=== PATIENT | female | born 1995 | race Caucasian/White ===

== ENCOUNTER 2021-06-01 20:48 | Emergency (ER) | payer MEDICAID, SELFPAY ==
[2021-06-01 20:49] VITALS: BP 105/76; PULSE 90; RESP 16; TEMP 36.1; O2SAT 97; BMI 28.3
[2021-06-01 21:02] LABS: Bacteria 0 SEEN /hpf (None Seen); Mucous, Urine 0 SEEN /hpf (<or=2+); Red Blood Cells-Urine 0 SEEN /hpf (0-5); White Blood Cells 0 SEEN /hpf (0-5)
[2021-06-01 21:24] LABS: Color, Urine Yellow (Yellow); Glucose, Dipstick Normal (Normal); Ketone-Dipstick Negative (Negative); Leukocyte Esterase-Dipstick Negative /ul (Negative); Nitrite-Dipstick Negative (Negative); Occult Blood-Urine 10 /ul (Negative); Protein-Dipstick 15 mg/dl (Negative); Specific Gravity, Urine 1.015 (1.002-1.030); Urine Bilirubin Dipstick Negative (Negative); Urine Clarity Clear (Clear); Urine Urobilinogen Normal (Normal)
[2021-06-01 21:57] LABS: Squamous Epithelial Cells - UA 0-5 SEEN /hpf (5-10)
[2021-06-01 22:22] LABS: Absolute Lymphocyte Count 2.16 X10^3/uL (0.83-4.51); Basophil# 0.03 X10^3/uL; Basophil% 0.5 % (0-1); Eosinophil# 0.08 X10^3/uL; Eosinophils% 1.4 % (0-5); Hematocrit 37.9 % (37-47); Hemoglobin 12.1 g/dL (12.0-15.0); Lymphocyte # 2.16 X10^3/ul (0.83-4.51); Lymphocyte % 36.9 % (19-41); Mean Corp Hgb Conc 31.9 g/dL (32-36); Mean Corpuscular Hgb 26.1 pg (27.0-32.0); Mean Corpuscular Volume 81.7 fL (81-99); Mean Platelet Vol. 11.1 fl (6.2-12.0); Monocyte# 0.58 X10^3/uL; Monocyte% 9.9 % (0-10); NRBC Flagged by Analyzer 0 % (0-5); Neutrophil # 2.99 X10^3/uL (2.7-7.7); Neutrophil % 51.1 % (47-70); Platelet Count 241 K/mm3 (150-450); RBC Distribution Width CV 14.3 % (11.6-14.6); RBC Distribution Width SD 41.4 fl (35.1-43.9); Red Blood Count 4.64 M/mm3 (4.2-5.4); White Blood Count 5.9 K/mm3 (4.4-11.0)
[2021-06-01 22:41] LABS: BUN 10 mg/dL (7-18); Creatinine, Serum 0.81 mg/dL (0.55-1.02); EST Glomerular Filtration Rate 90 mL/min (>60); Glucose 87 mg/dL (74-106)
[2021-06-01 22:42] LABS: Anion Gap 4 (5-15); BUN/Creat Ratio 12.4 RATIO (10-20); Calcium,Total 9.1 mg/dL (8.5-10.1); Chloride 106 mmol/L (98-107); Est Glom Filt Rate - Afr Amer 109 mL/min (>60); Potassium 3.7 mmol/L (3.5-5.1); Sodium Level 138 mmol/L (136-145)
[2021-06-01] MEDS: 0.9% Normal Saline 1,000 ML 1000 ML IV (22:57)
[2021-06-01] MEDS: Ondansetron 4 MG/2 ML Vial IV (22:58)
[2021-06-01 23:14] LABS: Internal QC Validated? YES +Cl - CLEAR BKGD; Pregnancy, Urine Negative Negative
--- NOTE | 2021-06-01 23:28 | EDS_ITS ---
HPI History of Present Illness Chief Complaint: General Illness Informant: patient Narrative Narrative: Patient is a 26-year-old previously healthy female who presents to the emergency department for nausea/vomiting and diarrhea. Her symptoms have been present over the past 3 days. She states she is had around 5 episodes of each per day. She denies any fevers but has had some intermittent chills. She did have abdominal pain at the onset but this is since resolved. No known sick contacts. No change in diet. No recent traveling or antibiotic use. She denies any urinary symptoms. No cough. She did have a mild headache. She denies any rashes. She denies any previous abdominal surgeries. She has not been taking anything for this at home. [facility] Medical History (Updated 06/01/21 @ 23:[address] Leonel Smith DO) Hypothyroid Home Medications levothyroxine 150 mcg PO DAILY #30 tablet 07/07/15 [Rx Last Taken Unknown] dicyclomine 20 mg PO TIDAC #20 capsule 04/01/16 [Rx Last Taken Unknown] ondansetron 4 mg PO Q8H PRN PRN #10 tab 04/01/16 [Rx Last Taken Unknown] ondansetron 4 mg PO Q8H PRN 4 Days #10 tab 06/01/21 [Rx Last Taken Unknown] Allergy/AdvReac Type Severity Reaction Status Date / Time No Known Allergies Allergy Verified 06/01/21 20:51 Social History Smoking Status: Current every day smoker tobacco type: cigarettes ROS ROS ED Constitutional Constitutional ED: Denies fever(s) Eyes Eyes: Denies change in vision ENT ENT ED: Denies epistaxis or rhinorrhea Cardiovascular Cardiovascular: Denies chest pain or palpitations Respiratory/Chest Respiratory/Chest: Denies cough, dyspnea or dyspnea on exertion Gastrointestinal Gastrointestinal: Reports diarrhea, nausea and vomiting; Denies abdominal pain, constipation or melena Genitourinary Genitourinary ED: Denies dysuria, hematuria or urinary frequency Musculoskeletal Musculoskeletal: Denies back pain or neck pain Integumentary Denies rash Neurologic Neurologic: Denies dizziness or weakness EXAM Physical Exam Const Vital Signs: 06/01/21 20:49 06/01/21 22:29 Temperature 97.0 F L Temperature Source Temporal Pulse Rate 90 Respiratory Rate 16 Respiratory Effort Normal Non-Labored Respiratory Pattern Normal Blood Pressure 105/76 Blood Pressure Mean 85 Pulse Ox 97 Oxygen Delivery Method Room Air Positive well nourished and well developed General Appearance ED: well developed and NAD HEENT Reports normocephalic, head/scalp atraumatic and moist mucous membranes Eyes PERRL and EOMs intact bilaterally Neck supple Resp normal respiratory effort and clear to auscultation bilaterally Auscultation: Negative for rales, rhonchi or wheezes Cardio regular rate, regular rhythm and no murmurs GI normal to inspection, nondistended, normoactive bowel sounds and non-tender Palpation: soft; Negative for guarding or rebound tenderness present Back/Spine no CVA tenderness Extremity normal to inspection General Extremety ED: Negative for edema or tenderness General Extremity: Negative for edema Neuro no sensory deficits noted Sensorium / Orientation: alert Motor Exam: strength 5/5 throughout Psych mental status grossly normal Skin no rashes or lesions noted MDM MDM MDM Narrative Medical decision making narrative: Patient presents to the ED for nausea/vomiting and diarrhea. She feels like she is dehydrated. She has been vomiting every time she tries to eat. Will check basic lab work and treat with Zofran and IV fluids. Patient's lab work did not reveal a high white blood cell count. No significant electrolyte disturbance. Urine does not show any signs of infection. test is negative. On reevaluation patient feeling much better after fluids and Zofran. This time I believe she is stable for discharge. She likely has a component of gastritis given the vomiting and diarrhea. She is a very benign abdominal exam. Low concern for acute surgical intra-abdominal pathology. We will write a prescription for Zofran. She is to follow-up with her PCP. Return precautions are reviewed. Lab Data Labs: Laboratory Results - last 24 hr 06/01/21 06/01/21 06/01/21 20:50 20:58 22:15 WBC 5.9 RBC 4.64 Hgb 12.1 Hct 37.9 MCV 81.7 MCH 26.1 L MCHC 31.9 L RDW Std Deviation 41.4 RDW Coeff of Beth 14.3 Plt Count 241 MPV 11.1 Immature Gran % (Auto) 0.200 Neut % (Auto) 51.1 Lymph % (Auto) 36.9 [place] % (Auto) 9.9 Eos % (Auto) 1.4 Baso % (Auto) 0.5 Absolute Neuts (auto) 3.0 Absolute Lymphs (auto) 2.16 Nucleated RBC % 0 Sodium Potassium Chloride Carbon Dioxide Anion Gap BUN Creatinine Estim Creat Clear Calc Est GFR (MDRD) Af Amer Est GFR (MDRD) Non-Af BUN/Creatinine Ratio Glucose Calcium Urine Color Yellow Urine Clarity Clear Urine pH 6.0 Ur Specific [place] 1.015 Urine Protein 15 H Urine Glucose (UA) Normal Urine Ketones Negative Urine Occult Blood 10 H Urine Nitrite Negative Urine Bilirubin Negative Urine Urobilinogen Normal Ur Leukocyte Esterase Negative Urine RBC 0 SEEN Urine WBC 0 SEEN Ur Squamous Epith Cells 0-5 SEEN Urine Bacteria 0 SEEN Urine Mucus 0 SEEN Urine Test Negative 06/01/21 22:15 WBC RBC Hgb Hct MCV MCH MCHC RDW Std Deviation RDW Coeff of Beth Plt Count MPV Immature Gran % (Auto) Neut % (Auto) Lymph % (Auto) [place] % (Auto) Eos % (Auto) Baso % (Auto) Absolute Neuts (auto) Absolute Lymphs (auto) Nucleated RBC % Sodium 138 Potassium 3.7 Chloride 106 Carbon Dioxide 28.0 Anion Gap 4 L BUN 10 Creatinine 0.81 Estim Creat Clear Calc 86.30 Est GFR (MDRD) Af Amer 109 Est GFR (MDRD) Non-Af 90 BUN/Creatinine Ratio 12.4 Glucose 87 Calcium 9.1 Urine Color Urine Clarity Urine pH Ur Specific [place] Urine Protein Urine Glucose (UA) Urine Ketones Urine Occult Blood Urine Nitrite Urine Bilirubin Urine Urobilinogen Ur Leukocyte Esterase Urine RBC Urine WBC Ur Squamous Epith Cells Urine Bacteria Urine Mucus Urine Test Discharge Plan Triage Chief Complaint: General Illness ED Provider: Leonel Smith Dx/Rx/DC Orders Clinical Impression: Nausea & vomiting, Diarrhea Instructions: ED Vomiting and Diarrhea ... Prescriptions: New ondansetron 4 mg tablet,disintegrating 4 mg PO Q8H PRN (Reason: nausea and vomiting) 4 Days Qty: 10 RF: 0 No Action levothyroxine 150 MCG tablet 150 mcg PO DAILY Qty: 30 RF: 0 dicyclomine 10 MG capsule 20 mg PO TIDAC Qty: 20 RF: 0 ondansetron 4 MG tablet 4 mg PO Q8H PRN PRN (Reason: Nausea) Qty: 10 RF: 0 Primary Care Provider: Care Physician,No Primary Referrals: Care Physician,No Primary [Primary Care Provider] - 3-5 Days if not improving Disposition Disposition: Home, Self Care Discharge Date/Time: 06/01/21 23:43
== END 2021-06-01 23:43 | disposition home or self-care (01) ==
PROVIDERS: Emergency Provider Emergency Medicine
DX: R11.2 Nausea with vomiting, unspecified (principal); R19.7 Diarrhea, unspecified; F17.210 Nicotine dependence, cigarettes, uncomplicated
CPT/HCPCS: 80048; 81001; 81025; 85025; 96374; 99282; J7030; A4216; J2405

== ENCOUNTER 2021-09-07 19:29 | Emergency (ER) | payer MEDICAID, SELFPAY ==
[2021-09-07 19:30] VITALS: BP 120/74; PULSE 95; RESP 18; TEMP 36.3; O2SAT 100; BMI 29.1
--- NOTE | 2021-09-07 21:31 | ED.RN ---
pt left without discharge papers.
--- NOTE | 2021-09-07 21:57 | EX.ED.DYSGE1 ---
HPI History of Present Illness Chief Complaint: Wound Narrative Narrative: Patient presented with multiple scabbed over wounds on her bilateral lower extremities. She states these are actually improving. Patient states that she was seen by urgent care today and started on cefadroxil and given mupirocin cream. She states she was told if she gets worse that she could come to the ER. She has not taken her antibiotics and has not used the topical ointment. She states that she has been a little lightheaded lately. She has not had any known fever. She denies cough or shortness of breath. She has no nausea or vomiting. She states she might have had the chills. She states she has taken no medications today. She denies history of MRSA. She states that after going home she was a little scared because the urgent care told her she needed blood cultures to rule out MRSA. She also states she was using [employer] to look up her symptoms and this frightened her to. [facility] Medical History Hypothyroid Home Medications levothyroxine 150 mcg PO DAILY #30 tablet 07/07/15 [Rx Last Taken Unknown] dicyclomine 20 mg PO TIDAC #20 capsule 04/01/16 [Rx Last Taken Unknown] ondansetron 4 mg PO Q8H PRN PRN #10 tab 04/01/16 [Rx Last Taken Unknown] ondansetron 4 mg PO Q8H PRN 4 Days #10 tab 06/01/21 [Rx Last Taken Unknown] Allergy/AdvReac Type Severity Reaction Status Date / Time No Known Allergies Allergy Verified 06/01/21 20:51 Social History Smoking Status: Current every day smoker tobacco type: cigarettes EXAM Physical Exam Const Vital Signs: 09/07/21 19:30 Temperature 97.3 F L Temperature Source Temporal Pulse Rate 95 Respiratory Rate 18 Blood Pressure 120/74 Blood Pressure Mean 89 Pulse Ox 100 Oxygen Delivery Method Room Air Positive well nourished General Appearance ED: NAD HEENT Reports moist mucous membranes Negative for trauma Eyes PERRL and EOMs intact bilaterally Chest Wall inspection of chest normal and palpation of chest normal Resp normal respiratory effort and clear to auscultation bilaterally Cardio regular rate and regular rhythm Extremity Extremity Narrative: Multiple scabbed over areas of approximately 1 cm over the bilateral lower extremities in different stages of healing. Some of these have a little erythema around them. There is nothing fluctuant. Neuro oriented x3 Sensorium / Orientation: alert Skin Skin Narrative: As described above MDM MDM MDM Narrative Medical decision making narrative: Patient presenting with concern for sepsis. After discussion I counseled her that all of her vital signs were normal. She had not taken anything that would mask a fever and she is afebrile. Her physical exam is remarkable for the scabbed over lesions on the lower extremities. Some of these have erythema around them. She has an antibiotic that she can use as well as topical ointment. She states that she has no history of MRSA or abscess in the past. She does not use IV drugs. Counseled her that based on her symptoms and her vital signs that she is not septic. I encouraged her to use her antibiotic at home. Counseled her that if she has 2 days of antibiotics and her symptoms are not improving she could return to the ER for reevaluation. I did offer wound care to her for follow-up but she declined. Impression: 1. Wound check Discharge Plan Triage Chief Complaint: Wound ED Provider: Zach Katz Dx/Rx/DC Orders Prescriptions: No Action levothyroxine 150 MCG tablet 150 mcg PO DAILY Qty: 30 RF: 0 dicyclomine 10 MG capsule 20 mg PO TIDAC Qty: 20 RF: 0 ondansetron 4 MG tablet 4 mg PO Q8H PRN PRN (Reason: Nausea) Qty: 10 RF: 0 ondansetron 4 mg tablet,disintegrating 4 mg PO Q8H PRN (Reason: nausea and vomiting) 4 Days Qty: 10 RF: 0 Primary Care Provider: Care Physician,No Primary Referrals: Care Physician,No Primary [Primary Care Provider] - Disposition Disposition: Elopement Discharge Date/Time: 09/07/21 21:33
== END 2021-09-07 21:33 | disposition left against medical advice (07) ==
PROVIDERS: Emergency Provider Student in an Organized Health Care Education/Training Program
DX: S89.91XA Unspecified injury of right lower leg, initial encounter (principal); S89.92XA Unspecified injury of left lower leg, initial encounter; X58.XXXA Exposure to other specified factors, initial encounter
CPT/HCPCS: 99281

== ENCOUNTER 2022-12-24 19:12 | Emergency (ER) | payer MEDICAID, SELFPAY ==
[2022-12-24 19:14] VITALS: BP 126/100; PULSE 98; RESP 18; TEMP 36.6; O2SAT 99; BMI 30.3
[2022-12-24 19:48] LABS: Bacteria 0 SEEN /hpf (None Seen); Mucous, Urine 0 SEEN /hpf (<or=2+); Red Blood Cells-Urine 0 SEEN /hpf (0-5); Squamous Epithelial Cells - UA 0 SEEN /hpf (5-10); White Blood Cells 0 SEEN /hpf (0-5)
[2022-12-24 19:51] LABS: Color, Urine Yellow (Yellow); Glucose, Dipstick Normal (Normal); Ketone-Dipstick 5 mg/dl (Negative); Leukocyte Esterase-Dipstick Negative /ul (Negative); Nitrite-Dipstick Negative (Negative); Occult Blood-Urine Negative /ul (Negative); Protein-Dipstick Negative (Negative); Urine Bilirubin Dipstick Negative (Negative); Urine Clarity Clear (Clear); Urine Urobilinogen Normal (Normal)
--- NOTE | 2022-12-24 22:23 | CT_ITS ---
INDICATION: lower abd pain EXAMINATION: CT ABDOMEN AND PELVIS WITH CONTRAST - CT Abdomen And Pelvis W/ Contrast Injection TECHNIQUE: Helically acquired images were obtained of the abdomen and pelvis following IV contrast. A radiation dose optimization technique was used for this scan. IV Contrast dosage and agent: Oral contrast: None. COMPARISON: None. FINDINGS: LOWER CHEST: Lung bases are clear. LIVER: Unremarkable. GALLBLADDER/BILE DUCTS: Unremarkable. PANCREAS: Unremarkable. SPLEEN: A few small scattered calcifications. ADRENAL GLANDS: Unremarkable. KIDNEYS / URETERS: Unremarkable. BOWEL / MESENTERY: Unremarkable. No bowel obstruction. APPENDIX: Identified and normal. No evidence of acute appendicitis. PERITONEUM: No free air. Small amount of free fluid in the pelvis cul-de-sac greater than water attenuation. VESSELS: Abdominal aorta is normal caliber. RETROPERITONEUM: Unremarkable. REPRODUCTIVE ORGANS: Intrauterine device in place within the uterus. Small 2.5 x 1.8 cm cystic structure with irregular margins likely partially collapsed cyst or follicle right ovary. BLADDER: Unremarkable. ABDOMINAL WALL: Unremarkable. BONES: No acute abnormality. OTHER: None. CT/Abdomen/Pelvis W IV Cont ONLY IMPRESSION: Small amount of complex free fluid in the pelvis most likely hemoperitoneum related to ruptured ovarian cyst. Small 2.5 cm partially collapsed right ovarian cyst or follicle. No evidence of acute appendicitis. IUD in the uterus. Electronically Signed: Eleanor Klein MD at 23:32 EST ,
--- NOTE | 2022-12-24 22:24 | EDS_ITS ---
HPI HPI - GI History of Present Illness Chief Complaint: Complaint Detail of Chief Complaint: Lower abdominal pain Informant: patient Abdominal Pain/Flank Pain Onset: Today and Yesterday Context: Gradual Onset Quality: Aching Location: Diffuse and RLQ Current Severity: Mild Maximum Severity: Mild Worsened by: Nothing Relieved by: Nothing Nausea/Vomiting/Emesis GI Symptom: Positive for Nausea; Negative for Vomiting Onset: Today Severity: Mild Diarrhea/Melena/Hematochezia GI Symptom: Negative for Diarrhea, Melena or Hematochezia Associated Symptoms Associated Symptoms: Negative for Dysuria, Frequency or Hematuria Narrative Narrative: 27-year-old female history of anxiety and hypothyroidism. No prior abdominal surgeries. Yesterday started having bilateral lower back pain. Today had pelvic and right lower quadrant pain with intermittent diffuse abdominal pain. 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 They dipped her urine and thought she might have a UTI and she took 1 Keflex yesterday when she had. She is feeling worse today. Denies any vomiting or diarrhea. No specific dysuria. No hematuria. No vaginal bleeding or discharge. Last menstrual period was around December 11. Prior similar symptoms: No Recent Illness/Hospitalization: No PFSH PFSH Medical History Hypothyroid Home Medications levothyroxine 150 mcg tablet 150 mcg PO DAILY ##30 07/07/15 [Rx Last Taken Unknown] dicyclomine 10 mg capsule 20 mg PO TIDAC ##20 04/01/16 [Rx Last Taken Unknown] ondansetron 4 mg disintegrating tablet 4 mg PO Q8H PRN PRN Nausea #10 tabs 04/01/16 [Rx Last Taken Unknown] ondansetron 4 mg disintegrating tablet 4 mg PO Q8H PRN nausea and vomiting 4 days #10 tabs 06/01/21 [Rx Last Taken Unknown] Allergy/AdvReac Type Severity Reaction Status Date / Time No Known Allergies Allergy Verified 12/24/22 19:13 Social History Smoking Status: Current every day smoker tobacco type: cigarettes ROS ROS ED ROS Narrative Back pain. Abdominal pain. Review of Systems ROS Unobtainable: Denies due to encephalopathy Constitutional Constitutional ED: Denies chills or fever(s) ENT ENT ED: Denies ear pain Cardiovascular Cardiovascular: Denies chest pain Respiratory/Chest Respiratory/Chest: Denies cough or dyspnea Gastrointestinal Gastrointestinal: Reports abdominal pain and nausea; Denies constipation, diarrhea, melena or vomiting Genitourinary Genitourinary ED: Denies dysuria or hematuria Musculoskeletal Musculoskeletal: Denies arthralgias Integumentary Denies abscess Neurologic Neurologic: Denies headache(s) Psychiatric Psychiatric: Denies anxiety Endocrine Endocrinology: Denies polydipsia Hematologic/Lymphatic Hematologic/Lymphatic: Denies easy bleeding Allergic/Immunologic Allergic/Immunologic ED: Denies mouth swelling or tongue swelling EXAM Physical Exam Narrative Exam Narrative: 27-year-old female no acute distress. Vital signs stable afebrile. H EENT exam unremarkable. Moist mucous membranes. Lungs clear. Heart regular rhythm. Abdomen soft nondistended normal bowel sounds no peritoneal signs. She has mild suprapubic and right lower quadrant tenderness. There is no hernia or mass. No distention. No right upper quadrant pain. No Garcia sign or McBurney's point exquisite tenderness. It is pretty much a benign abdominal exam. She is moving all 4 extremities. Back nontender. No CVA tenderness. Neurologic exam is normal. Const Vital Signs: 12/24/22 19:14 12/25/22 01:00 Temperature 97.8 F Temperature Source Temporal Pulse Rate 98 91 Respiratory Rate 18 18 Blood Pressure 126/100 H 119/72 Blood Pressure Mean 108 87 Pulse Ox 99 98 Oxygen Delivery Method Room Air Room Air Positive well nourished, well developed and obese; Negative for cachectic, contractures or unkempt General Appearance ED: well developed and NAD; Negative for unkempt, cachectic, contractures or pallor Nutritional Appearance: obese; Negative for cachectic HEENT Reports moist mucous membranes normocephalic and atraumatic; Negative for trauma or tenderness Eyes PERRL and EOMs intact bilaterally General Eye ED: Negative for pale conjunctiva or scleral icterus Neck no lymphadenopathy, supple and no JVD General: Negative for tenderness Carotids: Negative for other Resp normal respiratory effort and clear to auscultation bilaterally Effort and Inspection: Negative for respiratory distress Auscultation: Negative for rales, rhonchi or wheezes Cardio regular rate, regular rhythm, S1 normal heart sound, S2 normal heart sound and no murmurs Rate: Negative for bradycardia Rhythm: Negative for abnormal rhythm GI non-distended and no masses; Negative for non-tender Inspection: Negative for abdominal distention Auscultation: normoactive bowel sounds Palpation: soft and tender; Negative for guarding, rigid, hepatomegaly, splenomegaly, hernia, mass, pulsatile mass or rebound tenderness present Back/Spine no CVA tenderness General Back: Negative for CVA tenderness Cervical Spine: Negative for cervical spine tenderness Thoracic Spine / Upper Back: Negative for thoracic spinal tenderness Lumbar Spine / Lower Back: Negative for lumbar spinal tenderness Coccyx: Negative for other Extremity full ROM General Extremety ED: Negative for edema or tenderness General Extremity: Negative for edema Neuro CN's II-XII intact bilaterally, moves all extremities and no sensory deficits noted Sensorium / Orientation: alert, oriented to person, oriented to place and oriented to time; Negative for orientation impaired, confused, lethargic or stuporous Motor Exam: strength 5/5 throughout; Negative for general weakness Psych mental status grossly normal and thought process normal Appearance: Negative for unkempt Attitude: No agitated Mood & Affect: Negative for depressed, anxious or tearful Skin no wounds General Skin Exam: Negative for jaundice or pallor Lesions: no lesions Rashes: no rashes Trauma: Negative for abrasion Nails: Negative for discolored MDM MDM MDM Narrative Medical decision making narrative: 27-year-old with atypical back and abdominal pain. Not impressive exam. Urine is completely clean. She will get a CT of her abdomen and pelvis. Screening labs and a test. Clinically I do not think this is a UTI. I think it is unlikely but in the differential is appendicitis. Could be an ovarian cyst. She does not need anything for pain or nausea at this time. Repeat in exam room at 1:05 AM patient doing well. Abdomen is completely benign and nontender. She and I went over all of her test results including the CAT scan. She is comfortable being discharged home. Motrin Tylenol for pain. Follow-up if not improving. Return if worse. Lab Data Attestation: I reviewed the patient's lab results. Lab results narrative: CBC shows normal white count 10.3. H&H 12.4 and 39.7. Platelets 329. Electrolytes show potassium of 3.3 gap of 7. Normal BUN and creatinine. Normal liver enzymes. Normal urine. Serum is negative. CAT scan shows a ruptured ovarian cyst. With fluid in the pelvis. Read by the radiologist. appendix was read as normal. I did review the CAT scan. Labs: Laboratory Results - last 24 hr 12/24/22 12/24/22 12/24/22 19:45 22:30 22:30 WBC 10.3 RBC 4.79 Hgb 12.4 Hct 39.7 MCV 82.9 MCH 25.9 L MCHC 31.2 L RDW Std Deviation 50.0 H RDW Coeff of Beth 16.7 H Plt Count 329 MPV 11.0 Immature Gran % (Auto) 0.300 Neut % (Auto) 55.6 Lymph % (Auto) 34.7 [place] % (Auto) 6.6 Eos % (Auto) 2.2 Baso % (Auto) 0.6 Absolute Neuts (auto) 5.7 Absolute Lymphs (auto) 3.56 Nucleated RBC % 0 Sodium 139 Potassium 3.3 L Chloride 105 Carbon Dioxide 27.0 Anion Gap 7 BUN 9 Creatinine 0.72 Estim Creat Clear Calc 92.00 Est GFR (MDRD) Af Amer 123 Est GFR (MDRD) Non-Af 101 BUN/Creatinine Ratio 12.4 Glucose 91 Calcium 9.1 Total Bilirubin 0.50 AST 23 ALT 25 Alkaline Phosphatase 62 Total Protein 8.0 Albumin 4.3 Globulin 3.7 Albumin/Globulin Ratio 1.2 Serum , Qual Urine Color Yellow Urine Clarity Clear Urine pH 7.0 Ur Specific [place] 1.010 Urine Protein Negative Urine Glucose (UA) Normal Urine Ketones 5 H Urine Occult Blood Negative Urine Nitrite Negative Urine Bilirubin Negative Urine Urobilinogen Normal Ur Leukocyte Esterase Negative Urine RBC 0 SEEN Urine WBC 0 SEEN Ur Squamous Epith Cells 0 SEEN Urine Bacteria 0 SEEN Urine Mucus 0 SEEN 12/24/22 22:30 WBC RBC Hgb Hct MCV MCH MCHC RDW Std Deviation RDW Coeff of Beth Plt Count MPV Immature Gran % (Auto) Neut % (Auto) Lymph % (Auto) [place] % (Auto) Eos % (Auto) Baso % (Auto) Absolute Neuts (auto) Absolute Lymphs (auto) Nucleated RBC % Sodium Potassium Chloride Carbon Dioxide Anion Gap BUN Creatinine Estim Creat Clear Calc Est GFR (MDRD) Af Amer Est GFR (MDRD) Non-Af BUN/Creatinine Ratio Glucose Calcium Total Bilirubin AST ALT Alkaline Phosphatase Total Protein Albumin Globulin Albumin/Globulin Ratio Serum , Qual NEGATIVE Urine Color Urine Clarity Urine pH Ur Specific [place] Urine Protein Urine Glucose (UA) Urine Ketones Urine Occult Blood Urine Nitrite Urine Bilirubin Urine Urobilinogen Ur Leukocyte Esterase Urine RBC Urine WBC Ur Squamous Epith Cells Urine Bacteria Urine Mucus Radiography Diagnostic Testing: Clinical Impression(s) from Imaging Studies Abdomen/Pelvis CT 12/24/22 22:23 IMPRESSION: Small amount of complex free fluid in the pelvis most likely hemoperitoneum related to ruptured ovarian cyst. Small 2.5 cm partially collapsed right ovarian cyst or follicle. No evidence of acute appendicitis. IUD in the uterus. Electronically Signed: Eleanor Klein MD at 23:32 EST , Discharge Plan Triage Chief Complaint: Complaint Other Complaint: Back Fever ED Provider: Chucho Etienne Dx/Rx/DC Orders Clinical Impression: Abdominal pain, Ovarian cyst rupture Instructions: Ovarian Cysts Prescriptions: No Action levothyroxine 150 MCG tablet 150 mcg PO DAILY Qty: 30 0RF dicyclomine 10 MG capsule 20 mg PO TIDAC Qty: 20 0RF Rx Instructions: causes drowsiness ondansetron 4 MG tablet 4 mg PO Q8H PRN PRN (Reason: Nausea) Qty: 10 0RF ondansetron 4 mg tablet,disintegrating 4 mg PO Q8H PRN (Reason: nausea and vomiting) 4 Days Qty: 10 0RF Primary Care Provider: Tonia Waddell Referrals: Tonia Waddell, [facility] [Primary Care Provider] - As Needed Activity Restrictions/Additional Instructions: You have a ruptured ovarian cyst. That is what is causing her pain. Tylenol and Motrin for pain. This should progressively improve. Follow-up with your primary care provider if not improving. Your labs were normal. Your urine was negative. Disposition Disposition: Home, Self Care
[2022-12-24 22:55] LABS: Absolute Lymphocyte Count 3.56 X10^3/uL (0.83-4.51); Absolute Neutrophil Count 5.7 X10^3/uL (2.0-7.7); Basophil# 0.06 X10^3/uL; Basophil% 0.6 % (0-1); Eosinophil# 0.23 X10^3/uL; Eosinophils% 2.2 % (0-5); Hematocrit 39.7 % (37-47); Hemoglobin 12.4 g/dL (12.0-15.0); Lymphocyte # 3.56 X10^3/ul (0.83-4.51); Lymphocyte % 34.7 % (19-41); Mean Corp Hgb Conc 31.2 g/dL (32-36); Mean Corpuscular Hgb 25.9 pg (27.0-32.0); Mean Corpuscular Volume 82.9 fL (81-99); Monocyte# 0.68 X10^3/uL; Monocyte% 6.6 % (0-10); NRBC Flagged by Analyzer 0 % (0-5); Neutrophil # 5.69 X10^3/uL (2.7-7.7); Neutrophil % 55.6 % (47-70); Platelet Count 329 K/mm3 (150-450); RBC Distribution Width CV 16.7 % (11.6-14.6); Red Blood Count 4.79 M/mm3 (4.2-5.4); White Blood Count 10.3 K/mm3 (4.4-11.0)
[2022-12-24 23:06] LABS: Internal QC Validated? YES +Cl - CLEAR BKGD; Pregnancy, Serum, hCG Quali. NEGATIVE Negative
[2022-12-24 23:12] LABS: ALB/GLOB Ratio 1.2 RATIO (0.9-2.4); AST(SGOT) 23 U/L (15-37); Alanine Aminotransfer ALT/SGPT 25 U/L (13-56); Albumin, Serum 4.3 g/dL (3.2-5.0); Alkaline Phosphatase 62 U/L (45-117); Anion Gap 7 (5-15); BUN 9 mg/dL (7-18); BUN/Creat Ratio 12.4 RATIO (10-20); Calcium,Total 9.1 mg/dL (8.5-10.1); Chloride 105 mmol/L (98-107); Creatinine, Serum 0.72 mg/dL (0.55-1.02); EST Glomerular Filtration Rate 101 mL/min (>60); Est Glom Filt Rate - Afr Amer 123 mL/min (>60); Globulin 3.7 g/dL (2.2-4.2); Glucose 91 mg/dL (74-106); Potassium 3.3 mmol/L (3.5-5.1); Sodium Level 139 mmol/L (136-145)
[2022-12-25] MEDS: Acetaminophen 500 MG Tablet 1000 MG PO (00:59)
[2022-12-25 01:00] VITALS: BP 119/72; PULSE 91; RESP 18; O2SAT 98
[2022-12-25 01:13] VITALS: BP 108/69; PULSE 73; RESP 15; O2SAT 99
== END 2022-12-25 01:13 | disposition home or self-care (01) ==
PROVIDERS: Emergency Provider Emergency Medicine; PCP Nurse Practitioner Family; Visit Provider Emergency Medicine
DX: N83.201 Unspecified ovarian cyst, right side (principal); F17.210 Nicotine dependence, cigarettes, uncomplicated; E03.9 Hypothyroidism, unspecified; E66.9 Obesity, unspecified; Z68.30 Body mass index [BMI] 30.0-30.9, adult; Z79.899 Other long term (current) drug therapy
CPT/HCPCS: 74177; 80053; 81001; 84703; 85025; 99282; Q9967; A4216

== ENCOUNTER 2023-03-28 14:45 | Emergency (ER) | payer MEDICAID, SELFPAY ==
[2023-03-28 14:46] VITALS: BP 125/86; PULSE 82; RESP 16; TEMP 36.6; O2SAT 98; BMI 31.4
--- NOTE | 2023-03-28 16:20 | EX.ED.DYSGE1 ---
HPI <LADY Alvarado - Last Filed: 03/28/23 18:04> History of Present Illness Chief Complaint: Weakness Narrative Narrative: Patient is a 28-year-old female with history of hypothyroidism, fibromyalgia, anxiety, depression, ADHD presents the emergency department with full body weakness. Patient states that on Friday which was 4 days ago, the patient was diagnosed with strep throat. She was placed on amoxicillin. Patient states that her throat feels better however she feels more weak. She states that she was playing with her son today, when she got immediately tired quickly. She denies any fever or chills, denies any shortness of breath. Denies any chest pain. Patient is here for evaluation. Negative for any rash. PFSH <LADY Alvarado - Last Filed: 03/28/23 18:04> [facility] Medical History Hypothyroid Home Medications alprazolam 0.5 mg tablet mg 03/28/23 [History Last Taken Unknown] amoxicillin 500 mg capsule mg 03/28/23 [History Last Taken Unknown] levothyroxine 150 mcg tablet 200 mcg PO DAILY 03/28/23 [History Last Taken Unknown] lisdexamfetamine 40 mg capsule (Vyvanse) mg 03/28/23 [History Last Taken Unknown] paroxetine HCl 10 mg tablet mg PO 03/28/23 [History Last Taken Unknown] Allergy/AdvReac Type Severity Reaction Status Date / Time No Known Allergies Allergy Verified 03/28/23 14:46 Social History Smoking Status: Current every day smoker tobacco type: cigarettes ROS <LADY Alvarado - Last Filed: 03/28/23 18:04> ROS ED ROS Narrative Constitutional: Negative for fever, chills, weight loss. Positive for generalized weakness Eyes: Negative for vision loss, vision change, double vision ENT: Negative for any sore throat, ear pain, congestion Cardiovascular: Negative for any chest pain, tightness, palpitations Respiratory: Negative for any cough, sputum production, hemoptysis, dyspnea, dyspnea on exertion, orthopnea Gastrointestinal: Negative for any abdominal pain, nausea, vomiting, diarrhea, constipation, blood in stool, blood in vomit : Negative for any urinary frequency, dysuria, retention, blood in urine Muscle skeletal: Negative for any muscle joint pain, stiffness, arthralgias, neck pain, back pain. Positive for myalgias Neurological: Negative for any headache, syncope, numbness or tingling, dizziness Skin: Negative for any rashes, lumps, itching, abrasions, lacerations Psychiatric: Negative for any depression, anxiety, stress, suicidal ideation, homicidal ideation Hematologic: Negative for any easy bruising, excessive bruising, easy bleeding Allergies: Negative for any eczema, hives, rash EXAM <LADY Alvarado - Last Filed: 03/28/23 18:04> Physical Exam Narrative Exam Narrative: Vital signs reviewed. HEET: Head normocephalic atraumatic, TMs clear bilaterally. Posterior pharynx is clear, moist mucous membranes. Nares clear bilaterally. Neck: Supple with no lymphadenopathy or tenderness. No signs of meningismus, negative jolt sign. Cardiac: Regular rate and rhythm no murmurs gallops or rubs, equal peripheral pulses bilaterally. Respiratory: Lungs clear to auscultation bilaterally. No chest tenderness. Abdomen: Soft, nontender, nondistended. No abdominal bruit or pulsatile masses. No hepatosplenomegaly Extremities: No peripheral edema, no signs of gross trauma or deformity. Active full range of motion of all extremities. Neuro: Cranial nerves II through XII intact, no focal neurological deficits. Skin: Clean dry and intact with no rash, purpura, petechiae, vesicles or pustules. Backs/flank: No CVA tenderness, no midline spinal tenderness, no deformity. Psych: Normal mood and affect. No SI, HI or acute psychosis. Const Vital Signs: 03/28/23 14:46 03/28/23 15:40 Temperature 97.9 F Temperature Source Temporal Pulse Rate 82 Respiratory Rate 16 Respiratory Effort Normal Non-Labored Blood Pressure 125/86 H Blood Pressure Mean 99 Pulse Ox 98 Oxygen Delivery Method Room Air <Dr. Frank Crouch MD - Last Filed: 03/28/23 17:59> Physical Exam Const Vital Signs: 03/28/23 14:46 03/28/23 15:40 Temperature 97.9 F Temperature Source Temporal Pulse Rate 82 Respiratory Rate 16 Respiratory Effort Normal Non-Labored Blood Pressure 125/86 H Blood Pressure Mean 99 Pulse Ox 98 Oxygen Delivery Method Room Air [facility] <Pedro BautistaLADY - Last Filed: 03/28/23 18:04> [facility] Lab Data Labs: Laboratory Results - last 24 hr 03/28/23 03/28/23 03/28/23 16:24 16:29 16:29 WBC 9.9 RBC 4.76 Hgb 12.2 Hct 39.7 MCV 83.4 MCH 25.6 L MCHC 30.7 L RDW Std Deviation 45.7 H RDW Coeff of Beth 14.9 H Plt Count 338 MPV 10.6 Immature Gran % (Auto) 0.400 Neut % (Auto) 60.2 Lymph % (Auto) 31.7 [place] % (Auto) 5.2 Eos % (Auto) 1.6 Baso % (Auto) 0.9 Absolute Neuts (auto) 6.0 Absolute Lymphs (auto) 3.14 Nucleated RBC % 0 Sodium 138 Potassium 3.8 Chloride 105 Carbon Dioxide 27.0 Anion Gap 6 BUN 19 H Creatinine 0.65 Estim Creat Clear Calc 101.00 Est GFR (MDRD) Af Amer 138 Est GFR (MDRD) Non-Af 114 BUN/Creatinine Ratio 29.2 H Glucose 96 Calcium 8.6 Total Bilirubin 0.20 AST 19 ALT 31 Alkaline Phosphatase 72 Total Protein 7.5 Albumin 3.5 Globulin 4.0 Albumin/Globulin Ratio 0.9 TSH 11.30 H Urine Color Yellow Urine Clarity Clear Urine pH 6.0 Ur Specific [place] 1.020 Urine Protein 15 H Urine Glucose (UA) Normal Urine Ketones 5 H Urine Occult Blood Negative Urine Nitrite Negative Urine Bilirubin Negative Urine Urobilinogen Normal Ur Leukocyte Esterase 25 H Urine RBC 0 SEEN Urine WBC 0 SEEN Ur Squamous Epith Cells 0-5 SEEN Urine Bacteria 0 SEEN Urine Mucus 0 SEEN Urine Test Negative Monoscreen 03/28/23 16:29 WBC RBC Hgb Hct MCV MCH MCHC RDW Std Deviation RDW Coeff of Beth Plt Count MPV Immature Gran % (Auto) Neut % (Auto) Lymph % (Auto) [place] % (Auto) Eos % (Auto) Baso % (Auto) Absolute Neuts (auto) Absolute Lymphs (auto) Nucleated RBC % Sodium Potassium Chloride Carbon Dioxide Anion Gap BUN Creatinine Estim Creat Clear Calc Est GFR (MDRD) Af Amer Est GFR (MDRD) Non-Af BUN/Creatinine Ratio Glucose Calcium Total Bilirubin AST ALT Alkaline Phosphatase Total Protein Albumin Globulin Albumin/Globulin Ratio TSH Urine Color Urine Clarity Urine pH Ur Specific [place] Urine Protein Urine Glucose (UA) Urine Ketones Urine Occult Blood Urine Nitrite Urine Bilirubin Urine Urobilinogen Ur Leukocyte Esterase Urine RBC Urine WBC Ur Squamous Epith Cells Urine Bacteria Urine Mucus Urine Test Monoscreen Negative Treatment and Re-Evaluation :: Patient appears generally well, patient appears nontoxic, vital signs are stable. Patient presents to the emergency department with ongoing weakness, feeling of fatigue over the last week. Patient did get diagnosed with strep throat 3 days ago, she has been taking her amoxicillin however she states she is not feeling better. Patient did receive some basic laboratory values, I was concerned about a TSH secondary to her not taking her medication as prescribed, as well as mono.Patient did receive laboratory values, patient's urinalysis was negative for any infection, patient is not . 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 She also admits to not taking the medication as prescribed. She will continue to take it as prescribed. Her mono was negative. We the patient is suffering from the strep infection, I think that it will take time, to feel better. There is no evidence of any acute new infection. She is instructed to take the amoxicillin as prescribed. She will maintain hydration. Patient is happy with the plan of care, she did feel better after IV hydration. At this time, is no evidence of any mono, thyroid storm, excessive hypothyroidism, urinary tract infection. Patient and her significant other were given discharge instructions, all questions answered <Dr. Frank Crouch MD - Last Filed: 03/28/23 17:59> [facility] Lab Data Attestation: I reviewed the patient's lab results. Labs: Laboratory Results - last 24 hr 03/28/23 03/28/23 03/28/23 16:24 16:29 16:29 WBC 9.9 RBC 4.76 Hgb 12.2 Hct 39.7 MCV 83.4 MCH 25.6 L MCHC 30.7 L RDW Std Deviation 45.7 H RDW Coeff of Beth 14.9 H Plt Count 338 MPV 10.6 Immature Gran % (Auto) 0.400 Neut % (Auto) 60.2 Lymph % (Auto) 31.7 [place] % (Auto) 5.2 Eos % (Auto) 1.6 Baso % (Auto) 0.9 Absolute Neuts (auto) 6.0 Absolute Lymphs (auto) 3.14 Nucleated RBC % 0 Sodium 138 Potassium 3.8 Chloride 105 Carbon Dioxide 27.0 Anion Gap 6 BUN 19 H Creatinine 0.65 Estim Creat Clear Calc 101.00 Est GFR (MDRD) Af Amer 138 Est GFR (MDRD) Non-Af 114 BUN/Creatinine Ratio 29.2 H Glucose 96 Calcium 8.6 Total Bilirubin 0.20 AST 19 ALT 31 Alkaline Phosphatase 72 Total Protein 7.5 Albumin 3.5 Globulin 4.0 Albumin/Globulin Ratio 0.9 TSH 11.30 H Urine Color Yellow Urine Clarity Clear Urine pH 6.0 Ur Specific [place] 1.020 Urine Protein 15 H Urine Glucose (UA) Normal Urine Ketones 5 H Urine Occult Blood Negative Urine Nitrite Negative Urine Bilirubin Negative Urine Urobilinogen Normal Ur Leukocyte Esterase 25 H Urine RBC 0 SEEN Urine WBC 0 SEEN Ur Squamous Epith Cells 0-5 SEEN Urine Bacteria 0 SEEN Urine Mucus 0 SEEN Urine Test Negative Monoscreen 03/28/23 16:29 WBC RBC Hgb Hct MCV MCH MCHC RDW Std Deviation RDW Coeff of Beth Plt Count MPV Immature Gran % (Auto) Neut % (Auto) Lymph % (Auto) [place] % (Auto) Eos % (Auto) Baso % (Auto) Absolute Neuts (auto) Absolute Lymphs (auto) Nucleated RBC % Sodium Potassium Chloride Carbon Dioxide Anion Gap BUN Creatinine Estim Creat Clear Calc Est GFR (MDRD) Af Amer Est GFR (MDRD) Non-Af BUN/Creatinine Ratio Glucose Calcium Total Bilirubin AST ALT Alkaline Phosphatase Total Protein Albumin Globulin Albumin/Globulin Ratio TSH Urine Color Urine Clarity Urine pH Ur Specific [place] Urine Protein Urine Glucose (UA) Urine Ketones Urine Occult Blood Urine Nitrite Urine Bilirubin Urine Urobilinogen Ur Leukocyte Esterase Urine RBC Urine WBC Ur Squamous Epith Cells Urine Bacteria Urine Mucus Urine Test Monoscreen Negative Treatment and Re-Evaluation Comments:: Seen and evaluated independently and in conjunction with nurse practitioner. Agree with notes above unless documented otherwise. Patient recently had sore throat and was diagnosed by swab with strep throat, her other 2 family members also had the same symptoms at the same time, all swab positive for strep and were treated. She has been on amoxicillin for the past 3-4 days, her sore throat is completely better and asymptomatic. She has been more fatigued and achy all over, she denies persistent fevers. She has developed no rash. On exam, she does not have a rash except for some mild angular cheilitis in the right mouth. She is well-appearing in no distress, posterior pharynx is normal-appearing, she has no posterior or anterior lymphadenopathy of the neck. I agree with the work-up performed including a Monospot. That is negative and there is no atypical lymphocytes to suggest mononucleosis. She takes her levothyroxine inconsistently, and her TSH is elevated but not as high as it has been in the past. Based on the available information in the labs I suspect taking her levothyroxine more consistently will help her feel better. Follow-up as an outpatient encouraged. Discharge Plan Triage Chief Complaint: Weakness Other Complaint: Sore Throat ED Midlevel Provider: Pedro Bautista ED Provider: Frank Crouch Dx/Rx/DC Orders Clinical Impression: Fatigue, Hypothyroidism, History of streptococcal sore throat Instructions: ED Hypothyroidism Prescriptions: No Action amoxicillin 500 mg capsule paroxetine HCl 10 mg tablet PO alprazolam 0.5 mg tablet Vyvanse 40 mg capsule levothyroxine 150 MCG tablet 200 mcg PO DAILY Primary Care Provider: Tonia Waddell Referrals: Tonia Waddell, [facility] [Primary Care Provider] - Activity Restrictions/Additional Instructions: Maintain hydration. Take your thyroid medication as prescribed. Continue taking the antibiotic Disposition Disposition: Home, Self Care
[2023-03-28] MEDS: Ondansetron 4 MG/2 ML Vial IV (16:30)
[2023-03-28] MEDS: 0.9% Normal Saline 1,000 ML 1000 ML IV (16:30)
[2023-03-28 16:35] LABS: Bacteria 0 SEEN /hpf (None Seen); Mucous, Urine 0 SEEN /hpf (<or=2+); Red Blood Cells-Urine 0 SEEN /hpf (0-5); White Blood Cells 0 SEEN /hpf (0-5)
[2023-03-28 16:44] LABS: Color, Urine Yellow (Yellow); Glucose, Dipstick Normal (Normal); Ketone-Dipstick 5 mg/dl (Negative); Leukocyte Esterase-Dipstick 25 /ul (Negative); Nitrite-Dipstick Negative (Negative); Occult Blood-Urine Negative /ul (Negative); Protein-Dipstick 15 mg/dl (Negative); Urine Bilirubin Dipstick Negative (Negative); Urine Clarity Clear (Clear); Urine Urobilinogen Normal (Normal)
[2023-03-28 16:50] LABS: Absolute Lymphocyte Count 3.14 X10^3/uL (0.83-4.51); Basophil# 0.09 X10^3/uL; Basophil% 0.9 % (0-1); Eosinophil# 0.16 X10^3/uL; Eosinophils% 1.6 % (0-5); Hematocrit 39.7 % (37-47); Hemoglobin 12.2 g/dL (12.0-15.0); Lymphocyte # 3.14 X10^3/ul (0.83-4.51); Lymphocyte % 31.7 % (19-41); Mean Corp Hgb Conc 30.7 g/dL (32-36); Mean Corpuscular Hgb 25.6 pg (27.0-32.0); Mean Corpuscular Volume 83.4 fL (81-99); Mean Platelet Vol. 10.6 fl (6.2-12.0); Monocyte# 0.52 X10^3/uL; Monocyte% 5.2 % (0-10); NRBC Flagged by Analyzer 0 % (0-5); Neutrophil # 5.97 X10^3/uL (2.7-7.7); Neutrophil % 60.2 % (47-70); Platelet Count 338 K/mm3 (150-450); RBC Distribution Width CV 14.9 % (11.6-14.6); RBC Distribution Width SD 45.7 fl (35.1-43.9); Red Blood Count 4.76 M/mm3 (4.2-5.4); White Blood Count 9.9 K/mm3 (4.4-11.0)
[2023-03-28 16:52] LABS: Internal QC Validated? YES +Cl - CLEAR BKGD; Pregnancy, Urine Negative Negative; Squamous Epithelial Cells - UA 0-5 SEEN /hpf (5-10)
[2023-03-28 17:05] LABS: ALB/GLOB Ratio 0.9 RATIO (0.9-2.4); AST(SGOT) 19 U/L (15-37); Alanine Aminotransfer ALT/SGPT 31 U/L (13-56); Albumin, Serum 3.5 g/dL (3.2-5.0); Alkaline Phosphatase 72 U/L (45-117); Anion Gap 6 (5-15); BUN 19 mg/dL (7-18); BUN/Creat Ratio 29.2 RATIO (10-20); Calcium,Total 8.6 mg/dL (8.5-10.1); Chloride 105 mmol/L (98-107); Creatinine, Serum 0.65 mg/dL (0.55-1.02); EST Glomerular Filtration Rate 114 mL/min (>60); Est Glom Filt Rate - Afr Amer 138 mL/min (>60); Glucose 96 mg/dL (74-106); Potassium 3.8 mmol/L (3.5-5.1); Protein, Total 7.5 g/dL (6.4-8.2); Sodium Level 138 mmol/L (136-145)
[2023-03-28 17:44] LABS: Internal QC Validated? YES +Cl - CLEAR BKGD; Monotest Negative (Negative)
== END 2023-03-28 18:14 | disposition home or self-care (01) ==
PROVIDERS: Nurse Practitioner; Emergency Provider Emergency Medicine; PCP Nurse Practitioner Family; Visit Provider Emergency Medicine
DX: R53.83 Other fatigue (principal); E03.9 Hypothyroidism, unspecified; F17.210 Nicotine dependence, cigarettes, uncomplicated; Z79.899 Other long term (current) drug therapy
CPT/HCPCS: 80053; 81001; 81025; 84443; 85025; 86308; 96361; 96374; 99283; J7030; A4216; J2405

== ENCOUNTER 2023-06-12 12:13 | Emergency (ER) | payer MEDICAID, SELFPAY ==
[2023-06-12 12:14] VITALS: BP 116/89; PULSE 84; RESP 16; TEMP 36.4; O2SAT 100; BMI 31.7
--- NOTE | 2023-06-12 12:25 | EDS_ITS ---
HPI <ELMA Nogueira - Last Filed: 06/12/23 12:54> History of Present Illness Chief Complaint: Wound Narrative Narrative: 5 days ago patient was doing a split and hit the top of her left foot on a metal stair. Since then she has had pain and bruising but is able to ambulate. No weakness numbness or tingling. Over the last couple days she also developed sores all over her face and a few on her extremities. She states she does pick her skin. She also has tongue discomfort. No difficulty swallowing or breathing. No sore throat, fever or chills. No cough or upper respiratory symptoms. PFSH <ELMA Nogueira - Last Filed: 06/12/23 12:54> [facility] Medical History Hypothyroid Home Medications alprazolam 0.5 mg tablet mg 03/28/23 [History Last Taken Unknown] amoxicillin 500 mg capsule mg 03/28/23 [History Last Taken Unknown] levothyroxine 150 mcg tablet 200 mcg PO DAILY 03/28/23 [History Last Taken Unknown] lisdexamfetamine 40 mg capsule (Vyvanse) mg 03/28/23 [History Last Taken Unknown] paroxetine HCl 10 mg tablet mg PO 03/28/23 [History Last Taken Unknown] doxycycline hyclate 100 mg tablet 100 mg PO BID 7 days #14 tabs 06/12/23 [Rx Last Taken Unknown] nystatin 100,000 unit/mL oral suspension 2 ml PO 4X/DAY #120 mL 06/12/23 [Rx Last Taken Unknown] Allergy/AdvReac Type Severity Reaction Status Date / Time No Known Allergies Allergy Verified 03/28/23 14:46 Social History Smoking Status: Current every day smoker tobacco type: cigarettes ROS <ELMA Nogueira - Last Filed: 06/12/23 12:54> ROS ED ROS Narrative Constitutional: Negative for fever, chills, malaise. ENT: Negative for sore throat, ear pain, rhinorrhea. CVS: Negative for chest pain. Respiratory: Negative for shortness of breath, cough. GI: Negative for nausea, vomiting. Neuro: Negative for motor/sensory dysfunction. Skin: Positive for rash. Musc: Positive for right foot pain. EXAM <ELMA Nogueira - Last Filed: 06/12/23 12:54> Physical Exam Narrative Exam Narrative: CONST: Patient sitting in no acute distress. EYES: Normal inspection. ENT: Normal inspection, tongue has yellow film that scrapes off. Normal posterior oropharynx. No trismus, sublingual space is soft. NECK: Normal inspection. Trachea midline. RESP: No respiratory distress, CTAB. CVS: Regular rate and rhythm, no murmur, no gallop. SKIN: Small scabs somewhat pustules scattered densely across her face, a few on her lower extremities. No drainage, no fluctuance. EXTREMITIES: Bruising over left dorsal foot but no reproducible tenderness of the knee ankle or foot, full range of motion, normal strength and sensation, 2+ DP pulse. NEURO: Oriented x4. PSYCH: Normal affect. Const Vital Signs: 06/12/23 12:14 Temperature 97.6 F L Temperature Source Temporal Pulse Rate 84 Respiratory Rate 16 Blood Pressure 116/89 H Blood Pressure Mean 98 Pulse Ox 100 Oxygen Delivery Method Nasal Cannula <Dr. Som Winslow MD - Last Filed: 06/12/23 14:26> Physical Exam Const Vital Signs: 06/12/23 12:14 Temperature 97.6 F L Temperature Source Temporal Pulse Rate 84 Respiratory Rate 16 Blood Pressure 116/89 H Blood Pressure Mean 98 Pulse Ox 100 Oxygen Delivery Method Nasal Cannula MDM <ELMA Nogueira - Last Filed: 06/12/23 12:54> [facility] Narrative Medical decision making narrative: Patient seen for multiple complaints. She has a right foot contusion with bruising present but no significant tenderness; neurovascularly intact. X-ray shows no acute fracture or dislocation. I discussed OTC pain relievers. Second issue is she has oral candidiasis and I prescribed nystatin mouthwash. She also has scattered sores all over her face from picking her skin. A few of them have pustules and with the density of them I prescribed doxycycline and discussed local wound care. She also has a few on her legs that appear to be folliculitis. Patient given return precautions and discharged in stable condition. I have personally performed a face to face assessment of the patient and have reviewed the JOSHUA Note. I performed a substantive portion of the visit including all aspects of the following. My dunn findings include: History is remarkable for rash that started on Friday. Patient's been picking at the rash on her face. Patient states she changes her razor frequently. She has no history of abscess in the past or folliculitis. She denies fever, chills night sweats. She is on no immunosuppressive meds. She has no history medic f ever, heart murmur or mitral valve prolapse. She also presents because of blunt trauma to her left foot. There is bruising noted over the midfoot and distal anterior left leg near the ankle joint. 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 With contusion to the foot will obtain x-ray to rule out fracture. Medical Decision Making we will treat folliculitis with antibiotics for streptococcal and staphylococcal coverage since it is extensive. X-ray of the foot was performed. 3 views were independently reviewed interpreted by me at 1246 as negative. There is no fracture, subluxation or dislocation. There is no evidence of foreign body. Other additions or changes: [None] Radiography Diagnostic Testing: Clinical Impression(s) from Imaging Studies Foot X-Ray 06/12/23 12:30 IMPRESSION: Negative. Electronically Signed: Jolie Jeffery MD at 12:49 EDT , <Dr. Som Winslow MD - Last Filed: 06/12/23 14:26> [facility] Narrative Medical decision making narrative: Patient seen for multiple complaints. She has a right foot contusion with bruising present but no significant tenderness; neurovascularly intact. X-ray shows no acute fracture or dislocation. I discussed OTC pain relievers. Second issue is she has oral candidiasis and I prescribed nystatin mouthwash. She also has scattered sores all over her face from picking her skin. A few of them have pustules and with the density of them I prescribed doxycycline and discussed local wound care. She also has a few on her legs that appear to be folliculitis. Patient given return precautions and discharged in stable condition. I have personally performed a face to face assessment of the patient and have reviewed the JOSHUA Note. I performed a substantive portion of the visit including all aspects of the following. My dunn findings include: History is remarkable for rash that started on Friday. Patient's been picking at the rash on her face. Patient states she changes her razor frequently. She has no history of abscess in the past or folliculitis. She denies fever, chills night sweats. She is on no immunosuppressive meds. She has no history medic fever, heart murmur or mitral valve prolapse. She also presents because of blunt trauma to her left foot. There is bruising noted over the midfoot and distal anterior left leg near the ankle joint. 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 With contusion to the foot and ankle will obtain x-ray to rule out fracture. Medical Decision Making we will treat folliculitis with antibiotics for streptococcal and staphylococcal coverage since it is extensive. X-ray of the foot was performed. 3 views were independently reviewed interpreted by me at 1246 as negative. There is no fracture, subluxation or dislocation. There is no evidence of foreign body. Other additions or changes: [None] Radiography Diagnostic Testing: Clinical Impression(s) from Imaging Studies Foot X-Ray 06/12/23 12:30 IMPRESSION: Negative. Electronically Signed: Jolie Jeffery MD at 12:49 EDT , Discharge Plan Triage Chief Complaint: Wound ED Midlevel Provider: Karen Pena ED Provider: Som Winslow Dx/Rx/DC Orders Clinical Impression: Candidiasis of mouth, Contusion of right foot, Folliculitis, Dermatillomania Instructions: Bruises (Contusions), Lexi Infection: Thrush Prescriptions: New doxycycline hyclate 100 mg tablet 100 mg PO BID 7 Days Qty: 14 0RF nystatin 100,000 unit/mL suspension 2 ml PO 4X/DAY Qty: 120 0RF Rx Instructions: Put 1 mL in each side of mouth 4 times a day. for 2 weeks (whatever bottle in stock) No Action amoxicillin 500 mg capsule paroxetine HCl 10 mg tablet PO alprazolam 0.5 mg tablet Vyvanse 40 mg capsule levothyroxine 150 MCG tablet 200 mcg PO DAILY Primary Care Provider: Tonia Waddell Referrals: Tonia Waddell, [facility] [Primary Care Provider] - Activity Restrictions/Additional Instructions: I prescribed antibiotics for the sores on her skin. Please do not pick them as they will get worse and become infected. I also prescribed mouthwash to treat the thrush on her tongue. I recommend changing your toothbrush now and after treatment. Follow-up with your primary care doctor. Disposition Disposition: Home, Self Care Discharge Date/Time: 06/12/23 13:00
--- NOTE | 2023-06-12 12:30 | RAD_ITS ---
INDICATION: pain EXAMINATION/TECHNIQUE: X-RAY - RIGHT XR Foot Min 3 Views 3 VIEWS COMPARISON: No relevant prior comparison study available FINDINGS: SOFT TISSUES: No soft tissue swelling or gas. No radiopaque foreign body. BONES/JOINTS: No acute fracture or subluxation.. Normal alignment. Preservation of the joint space.. No sclerotic or destructive changes observed. RAD/Foot min 3 Views IMPRESSION: Negative. Electronically Signed: Jolie Jeffery MD at 12:49 EDT ,
== END 2023-06-12 13:00 | disposition home or self-care (01) ==
PROVIDERS: Emergency Provider Emergency Medicine; PCP Nurse Practitioner Family; Visit Provider Emergency Medicine
DX: B37.0 Candidal stomatitis (principal); S90.31XA Contusion of right foot, initial encounter; L73.9 Follicular disorder, unspecified; F17.210 Nicotine dependence, cigarettes, uncomplicated; F42.4 Excoriation (skin-picking) disorder; X58.XXXA Exposure to other specified factors, initial encounter
CPT/HCPCS: 73630; 99282

== ENCOUNTER 2023-12-05 17:49 | Emergency (ER) | payer MEDICAID, SELFPAY ==
[2023-12-05 17:51] VITALS: BP 142/86; PULSE 87; RESP 14; TEMP 36.6; O2SAT 99; BMI 31.9
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
--- OUTSIDE RECORDS SUMMARY | 2023-12-05 18:35 | XMS RPT_ITS | CCD ---
Author Name Unknown Address [address] [place] [address] Organization [facility] Care Team Providers Care Torch Shearer Name Role Phone No, Physician Unavailable Unavailable Kiki Tubbs Unavailable Ted Humphrey [phone] Consulting U krunal NEIGHBJANINE KILLIAN Attending Nevin dixon NEIGHBJANINE KILLIAN Primary Care Nevin dixon NEIGHBJANINE KILLIAN Admitting Nevin dixon NEIGHBJANINE KILLIAN Consulting SOSA Gregorio Primary Care Unavailable SOSA FLYNN Admitting Unavailable Sosa Flynn Primary Care Provider KIKI TUBBS Primary Care Unavailable YOSHI CONTRERAS Attending Unavailable SELF, SELF Referring Unavailable Free, Text Entry Unavailable Unavailable Carrington Lorenza Unavailable Unavailable LEORA GONZALEZ Attending Unavailabl nandini NO, PHYSICIAN Primary Care Unavailable LEORA GONZALEZ Admitting Unavailabl e Bilderback, Socorro Unavailable Unavailabl e Unavailable Primary Care Provider Unavailabl SOSA Ramirez Attending Unavailab le NO, PHYSICIAN Primary Care Unavailable Unavailable Primary Care Provider Unavailabl e Ungerer Tonia BAUER Primary Care Provider NAYELY NEWMAN Referring Unavailable NAYELY NEWMAN Attending Unavailable NURA MCLAIN Referring Unavailable TONIA WADDELL Primary Care Unavailable TONIA WADDELL Primary Care Unavailable NAYELY NEWMAN Referring Unavailable NAYELY NEWMAN Referring Unavailable MARITZA RUGGIERO DO Primary Care Unavailable CSERNYIK, MARITZA DO Attending Unavailable UNGERER, TONIA REINFORCEMENT MAKER Consulting Unavailable CSERNYIK, MARITZA DO Admitting Unavailable UNGERER, TONIA REINFORCEMENT MAKER Referring Unavailable PROVIDER, UNKNOWN Consulting Unavailable UNGERER, TONIA REINFORCEMENT MAKER Primary Care Unavailable UNGERER, TONIA REINFORCEMENT MAKER Attending Unavailable UNGERER, TONIA REINFORCEMENT MAKER Consulting Unavailable UNGERER, TONIA REINFORCEMENT MAKER Admitting Unavailable PROVIDER, UNKNOWN Consulting Unavailable UNGERER, TONIA REINFORCEMENT MAKER Primary Care Unavailable UNGERER, TONIA REINFORCEMENT MAKER Consulting Unavailable UNGERER, TONIA REINFORCEMENT MAKER Attending Unavailable UNGERER, TONIA REINFORCEMENT MAKER Admitting Unavailable PROVIDER, UNKNOWN Consulting Unavailable UNGERER, TONIA REINFORCEMENT MAKER Consulting Unavailable MANISH, ERIC T Attending Unavailable MANISH, ERIC T Admitting Unavailable MANISH, ERIC T Primary Care Unavailable PROVIDER, UNKNOWN Consulting Unavailable UNGERER, TONIA REINFORCEMENT MAKER Admitting Unavailable UNGERER, TONIA REINFORCEMENT MAKER Primary Care Unavailable UNGERER, TONIA REINFORCEMENT MAKER Consulting Unavailable UNGERER, TONIA REINFORCEMENT MAKER Attending Unavailable PROVIDER, UNKNOWN Consulting Unavailable UNGERER, TONIA REINFORCEMENT MAKER Consulting Unavailable MANISH, ERIC T Primary Care Unavailable MANISH, ERIC T Attending Unavailable MANISH, ERIC T Admitting Unavailable PROVIDER, UNKNOWN Consulting Unavailable UNGERER, TONIA REINFORCEMENT MAKER Admitting Unavailable UNGERER, TONIA REINFORCEMENT MAKER Primary Care Unavailable UNGERER, TONIA REINFORCEMENT MAKER Consulting Unavailable UNGERER, TONIA REINFORCEMENT MAKER Attending Unavailable PROVIDER, UNKNOWN Consulting Unavailable UNGERER, TONIA REINFORCEMENT MAKER Admitting Unavailable UNGERER, TONIA REINFORCEMENT MAKER Primary Care Unavailable UNGERER, TONIA REINFORCEMENT MAKER Consulting Unavailable UNGERER, TONIA REINFORCEMENT MAKER Attending Unavailable PROVIDER, UNKNOWN Consulting Unavailable Allergies Allergy Classification Reported Allergen(s) Allergy Type Date of Onset Reaction(s) Facility (14 sources) busPIRone; Translations: [BUSPIRONE] Drug Allergy 8 Other: See Comments [facility] Repository Medications Current Medications Medication Drug Class(es) Dates Sig (Normalized) Sig (Original) amoxicillin 500 mg oral capsule (2 sources) Penicillin-class Antibacterial Start: 03-25-2023 End: 04-04-2023 take 1 capsule by mouth twice daily amoxicillin (AMOXIL) 500 mg capsule Take 1 capsule by mouth twice daily for 10 days. 20 capsule 0 03/25/2023 04/04/2023 Active Completed/Discontinued Medications Medication Drug Class(es) Dates Sig (Normalized) Sig (Original) acetaminophen 325 mg oral tablet (2 sources) Start: 06-28-2018 End: 06-28-2018 acetaminophen (TYLENOL) tablet 975 mg [id number] 200 actuat albuterol 0.09 mg/actuat metered dose inhaler (7 sources) beta2-Adrenergic Agonist Start: 11-19-2022 take 2 puff(s) by inhalation every four hours as needed albuterol HFA (PROVENTIL HFA, VENTOLIN HFA) 90 mcg/actuation inhaler Inhale 2 Puffs as instructed every 4 hours as needed. 1 Each 5 11/19/2022 Active Problems Active Problems Problem Classification Problem Date Documented Da te Episodic/Chronic Abdominal pain (4 sources) Right upper quadrant pain; Translations: [Epigastric pain] Onset: 8 07-02-2018 Episodic Alcohol-related disorders (7 sources) Alcohol intoxication; Translations: [Alcohol abuse] Onset: 8 06-28-2018 Chronic Anxiety disorders (2 sources) Anxiety disorder, unspecified; Translations: [Anxiety disorder, unspecified] Onset: 2 Chronic Biliary tract disease (2 sources) Polyp of gallbladder; Translations: [Cholecystitis, unspecified] Onset: 8 07-02-2018 Episodic Esophageal disorders (2 sources) Gastroesophageal reflux disease; Translations: [Gastroesophageal reflux disease, unspecified whether esophagitis present] Onset: 1 01-23-2021 Chronic Fever of unknown origin (1 source) Fever; Translations: [Fever, unspecified] Episodic Influenza (1 source) Influenza-like illness; Translations: [Influenza due to unidentified influenza virus with other respiratory manifestations] Episodic Miscellaneous mental health disorders (1 source) Binge eating disorder; Translations: [Binge eating disorder] Onset: 3 Chronic Mood disorders (6 sources) Depressive disorder; Translations: [Severe recurrent major depression without psychotic features] Onset: 8 06-29-2018 Chronic Mood disorders (2 sources) Mood disorders; Translations: [Depression, unspecified] Onset: 2 Nausea and vomiting (2 sources) Nausea and vomiting; Translations: [Nausea and vomiting] Onset: 1 01-23-2021 Episodic Other gastrointestinal disorders (2 sources) Abdominal bloating; Translations: [Bloating] Onset: 1 01-23-2021 Episodic Other gastrointestinal disorders (2 sources) Constipation; Translations: [Constipation] Onset: 1 01-23-2021 Episodic Other injuries and conditions due to external causes (1 source) Contusion; Translations: [Other injury of unspecified body region, initial encounter] 06-12-2023 Episodic Other lower respiratory disease (1 source) Cough; Translations: [Acute cough] Episodic Other lower respiratory disease (4 sources) Dyspnea; Translations: [Shortness of breath] Episodic Other lower respiratory disease (2 sources) Imaging of lung abnormal ; Translations: [Other nonspecific abnormal finding of lung field] Episodic Other nutritional; endocrine; and metabolic disorders (1 source) Obesity; Translations: [Class 2 obesity due to excess calories without serious comorbidity with body mass index (BMI) of 38.0 to 38.9 in adult] Onset: 8 01-28-2018 Chronic Other nutritional; endocrine; and metabolic disorders (1 source) Body mass index (BMI) 30.0-30.9, adult; Translations: [Body mass index [BMI]30.0-30.9, adult] Onset: 3 Chronic Other screening for suspected conditions (not mental disorders or infectious disease) (1 source) Imaging of thorax abnormal; Translations: [Abnormal findings on diagnostic imaging of other specified body structures] Chronic Other screening for suspected conditions (not mental disorders or infectious disease) (4 sources) Patient encounter status; Translations: [Screening for unspecified condition] Onset: 3 12-08-2021 Episodic Other skin disorders (1 source) Excessive sweating; Translations: [Generalized hyperhidrosis] Episodic Other upper respiratory infections (1 source) Streptococcal sore throat; Translations: [Streptococcal pharyngitis] Episodic Spondylosis; intervertebral disc disorders; other back problems (4 sources) Low back pain; Translations: [Lumbago] 03-06-2022 Episodic Past or Other Problems Problem Classification Problem Date Documented Da te Episodic/Chronic Deficiency and other anemia (3 sources) Nutritional anemia, unspecified; Translations: [Nutritional anemia, unspecified] Onset: 07-01-2023 Episodic Malaise and fatigue (1 source) Other fatigue; Translations: [Other fatigue] Onset: 07-01-2023 Episodic Other lower respiratory disease (1 source) Other nonspecific abnormal finding of lung field; Translations: [Abnormality of lung on CXR] Onset: 12-03-2022 Episodic Other lower respiratory disease (1 source) Shortness of breath; Translations: [SOB (shortness of breath)] Onset: 12-03-2022 Episodic Unclassified (1 source) Ingested substance, unknown drug, intentional self-harm, initial encounter ([facility] Results Test Name Value Interpretation Reference Range Facil it Vital Signs Date Time Vital Sign Value Performing Clinician Facility 06-12-2023 11:43-0400 Body temperature 98.01 [degF] Missy Rhodes APRN.COCOA BUTTER FILTER OPERATOR Work Phone: [facility] 06-12-2023 11:43-0400 Body weight 80.56 kg Missy Rhodes APRN.[employer] BUTTER FILTER OPERATOR Work Phone: [facility] 06-12-2023 11:43-0400 Diastolic blood pressure 80 mm[Hg] Missy Rhodes APRN.[employer] BUTTER FILTER OPERATOR Work Phone: [facility] 06-12-2023 11:43-0400 Heart rate 108 /min Missy Rhodes APRN.[employer]OA BUTTER FILTER OPERATOR Work Phone: [facility] 06-12-2023 11:43-0400 Respiratory rate 18 /min Missy Rhodes APRN.COCOA BUTTER FILTER OPERATOR Work Phone: [facility] 06-12-2023 11:43-0400 SaO2% (BldA) [Mass fraction] 97 % Missy Rhodes APRN.[employer]OA BUTTER FILTER OPERATOR Work Phone: [facility] 06-12-2023 11:43-0400 Systolic blood pressure 136 mm[Hg] Missy Rhodes APRN.[employer]OA BUTTER FILTER OPERATOR Work Phone: [facility] 03-28-2023 14:21-0400 Body temperature 98.49 [degF] Estelle Murphy PA-C Work Phone: [facility] 03-28-2023 14:21-0400 Body weight 78.38 kg Estelle Murphy PA-C Work Phone: [facility] 03-28-2023 14:21-0400 Diastolic blood pressure 74 mm[Hg] Estelle Athy PA-C Work Phone: [facility] 03-28-2023 14:21-0400 Heart rate 117 /min Estelle Athy PA-C Work Phone: [facility] 03-28-2023 14:21-0400 Respiratory rate 18 /min Estelle Athy PA-C Work Phone: [facility] 03-28-2023 14:21-0400 SaO2% (BldA) [Mass fraction] 98 % Estelle Athy PA-C Work Phone: [facility] 03-28-2023 14:21-0400 Systolic blood pressure 126 mm[Hg] Estelle Athy PA-C Work Phone: [facility] 03-25-2023 13:50-0400 Body temperature 98.6 [degF] Estelle Athy PA-C Work Phone: [facility] 03-25-2023 13:50-0400 Body weight 80.02 kg Estelle Athy PA-C Work Phone: [facility] 03-25-2023 13:50-0400 Diastolic blood pressure 68 mm[Hg] Estelle Athy PA-C Work Phone: [facility] 03-25-2023 13:50-0400 Heart rate 92 /min Estelle Athy PA-C Work Phone: [facility] 03-25-2023 13:50-0400 Respiratory rate 16 /min Estelle Athy PA-C Work Phone: [facility] 03-25-2023 13:50-0400 SaO2% (BldA) [Mass fraction] 98 % Estelle Athy PA-C Work Phone: [facility] 03-25-2023 13:50-0400 Systolic blood pressure 118 mm[Hg] Estelle Athy PA-C Work Phone: [facility] 01-10-2023 09:36-0500 Body height 157 cm Pulm Wstr Work Phone: [facility] 12-03-2022 09:36-0500 Body weight 75.3 kg Pulm Wstr Work Phone: [facility] 11-19-2022 07:59-0500 Body weight 76.2 kg Nayely Newman MD Work Phone: [facility] 11-19-2022 07:59-0500 Diastolic blood pressure 78 mm[Hg] Nayely Newman MD Work Phone: [facility] 11-19-2022 07:59-0500 Heart rate 109 /min Nayely Newman MD Work Phone: [facility] 11-19-2022 07:59-0500 Respiratory rate 18 /min Nayely Newman MD Work Phone: [facility] 11-19-2022 07:59-0500 SaO2% (BldA) [Mass fraction] 98 % Nayely Newman MD Work Phone: [facility] 11-19-2022 07:59-0500 Systolic blood pressure 122 mm[Hg] Nayely Newman MD Work Phone: [facility] 11-15-2022 15:33-0500 Body temperature 98.01 [degF] Nura Mclain MD Work Phone: [facility] 11-15-2022 15:33-0500 Body weight 76.57 kg Nura Mclain MD Work Phone: [facility] 11-15-2022 15:33-0500 Diastolic blood pressure 76 mm[Hg] uNra Mclain MD Work Phone: [facility] 11-15-2022 15:33-0500 Heart rate 103 /min Nura Mclain MD Work Phone: [facility] 11-15-2022 15:33-0500 Respiratory rate 20 /min Nura Mclain MD Work Phone: [facility] 11-15-2022 15:33-0500 SaO2% (BldA) [Mass fraction] 99 % Nura Mclain MD Work Phone: [facility] 11-15-2022 15:33-0500 Systolic blood pressure 128 mm[Hg] Nura Mclain MD Work Phone: [facility] 06-23-2022 13:49-0400 Body temperature 99.19 [degF] Estelle Athy PA-C Work Phone: [facility] 06-23-2022 13:49-0400 Body weight 72.58 kg Estlele Athy PA-C Work Phone: [facility] 06-23-2022 13:49-0400 Diastolic blood pressure 62 mm[Hg] Estelle Athy PA-C Work Phone: [facility] 06-23-2022 13:49-0400 Heart rate 113 /min Estelle Athy PA-C Work Phone: [facility] 06-23-2022 13:49-0400 Respiratory rate 18 /min Estelle Athy PA-C Work Phone: [facility] 06-23-2022 13:49-0400 SaO2% (BldA) [Mass fraction] 100 % Estelle Athy PA-C Work Phone: [facility] 06-23-2022 13:49-0400 Systolic blood pressure 118 mm[Hg] Estelle Athy PA-C Work Phone: [facility] 03-06-2022 13:03-0400 Body height 157.4 cm Text Entry Free [facility] 03-06-2022 13:03-0400 Body temperature 97.88 [degF] Text Entry Free [facility] 03-06-2022 13:03-0400 Diastolic blood pressure 73 mm[Hg] Text Entry Free [facility] 03-06-2022 13:03-0400 Heart rate 94 /min Text Entry Free [facility] 03-06-2022 13:03-0400 Respiratory rate 16 /min Text Entry Free [facility] 03-06-2022 13:03-0400 SaO2% (BldA) [Mass fraction] 100 % Text Entry Free [facility] 03-06-2022 13:03-0400 Systolic blood pressure 120 mm[Hg] Text Entry Free [facility] 12-08-2021 19:02-0500 Diastolic blood pressure 73 mm[Hg] Text Entry Free [facility] 12-08-2021 19:02-0500 Heart rate 90 /min Text Entry Free [facility] 12-08-2021 19:02-0500 Respiratory rate 16 /min Text Entry Free [facility] 12-08-2021 19:02-0500 SaO2% (BldA) [Mass fraction] 98 % Text Entry Free [facility] 12-08-2021 19:02-0500 Systolic blood pressure 109 mm[Hg] Text Entry Free [facility] 12-08-2021 16:22-0500 Body height 157.4 cm Text Entry Free [facility] 12-08-2021 16:22-0500 Body temperature 98.06 [degF] Text Entry Free [facility] 12-08-2021 16:22-0500 Body weight 75 kg Text Entry Free [facility] 09-07-2021 14:52-0400 Body height 160 cm Text Entry Free [facility] 09-07-2021 14:52-0400 Body temperature 97.88 [degF] Text Entry Free [facility] 09-07-2021 14:52-0400 Diastolic blood pressure 81 mm[Hg] Text Entry Free [facility] 09-07-2021 14:52-0400 Heart rate 90 /min Text Entry Free [facility] 09-07-2021 14:52-0400 SaO2% (BldA) [Mass fraction] 98 % Text Entry Free [facility] 09-07-2021 14:52-0400 Systolic blood pressure 125 mm[Hg] Text Entry Free [facility] 01-23-2021 10:55-0500 BMI (Body Mass Index) 30.65 kg/m2 Sosa Flynn [facility] 01-23-2021 10:55-0500 Body weight 78.47 kg Sosa Flynn [facility] 01-23-2021 10:55-0500 BP Diastolic 63 mm[Hg] Sosa Flynn [facility] 01-23-2021 10:55-0500 BP Systolic 99 mm[Hg] Sosa Flynn [facility] 01-23-2021 10:55-0500 Height 160 cm Sosa Flynn [facility] 01-23-2021 10:55-0500 Pulse (Heart Rate) 85 /min Sosa Flynn [facility] 01-23-2021 10:55-0500 Pulse Oximetry 99 % Sosachandan Flynn [facility] 07-01-2018 06:21-0400 Body Temperature 97.9 [degF] [facility] 07-01-2018 06:21-0400 BP Diastolic 64 mm[Hg] [facility] 07-01-2018 06:21-0400 BP Systolic 99 mm[Hg] [facility] 07-01-2018 06:21-0400 Pulse (Heart Rate) 71 /min [facility] 07-01-2018 06:21-0400 Pulse Oximetry 97 % [facility] 07-01-2018 06:21-0400 Respiratory Rate 18 /min [facility] 06-29-2018 15:26-0400 BMI (Body Mass Index) 33.23 kg/m2 [facility] 06-29-2018 15:26-0400 Height 160 cm [facility] 06-29-2018 15:26-0400 Weight 85.1 kg [facility] 06-29-2018 14:28-0400 BP Diastolic 75 mm[Hg] [facility] 06-29-2018 14:28-0400 BP Systolic 111 mm[Hg] [facility] 06-29-2018 14:28-0400 Pulse (Heart Rate) 54 /min [facility] 06-29-2018 14:28-0400 Pulse Oximetry 99 % [facility] 06-29-2018 14:28-0400 Respiratory Rate 16 /min [facility] 06-29-2018 11:20-0400 Body Temperature 98.71 [degF] [facility] 06-27-2018 03:07-0400 BMI (Body Mass Index) 33.66 kg/m2 Pio Manning [facility] 06-27-2018 [id number] [facility] 03:[id number] Weight 86.18 kg Pio Manning [facility] Encounters Encounter Date Encounter Type Care Provider Facility Start: 11-03-2023 End: 11-03-2023 ambulatory TONIA REINFORCEMENT MAKER [facility] Start: 10-30-2023 End: 10-30-2023 ambulatory TONIA REINFORCEMENT MAKER [facility] Start: 10-30-2023 End: 10-30-2023 Encounter for general adult medical examination without abnormal findings TONIA REINFORCEMENT MAKER [facility] Start: 10-30-2023 End: 10-30-2023 ambulatory TONIA REINFORCEMENT MAKER [facility] Start: 10-29-2023 End: 10-29-2023 ambulatory TONIA REINFORCEMENT MAKER [facility] Start: 10-10-2023 End: 10-10-2023 ambulatory TONIA REINFORCEMENT MAKER [facility] Start: 07-10-2023 End: 07-10-2023 Emergency department patient visit MARITZA CHAPMAN [facility] Start: 07-01-2023 End: 07-01-2023 ambulatory TONIA REINFORCEMENT MAKER [facility] Start: 06-12-2023 End: 06-12-2023 ambulatory [facility]ONIA D [facility] Facility[facility] Start: 06-12-2023 End: 06-12-2023 Patient encounter procedure Missy Rhodes APRN.[employer] BUTTER FILTER OPERATOR Work Phone: [facility] Procedures Date Procedure Procedure Detail Performing Clinician Start: 07-10-2023 Urinalysis MARITZA LAW YIK Plan of Treatment Date Care Activity Detail Author Start: 04-14-2029 Tetanus vaccination Tetanus: Every 1 0yrs [facility] Start: 07-25-2023 Influenza vaccination [facility] Start: 11-24-2022 DEPRESSION ASSESSMENT DEPRESSION ASS ESSMENT [facility] Start: 07-25-2022 Influenza vaccination INFLUENZA (#1) [facility] Start: 06-23-2022 End: 07-07-2022 Influenza virus A and B RNA and SARS-CoV-2 (COVID-19) N gene panel - Respiratory specimen by KIKO with probe detection [facility] Work Phone: Immunizations Immunization Date Immunization Notes Care Provider Lala ramirez 09-04-2018 influenza, injectabl e, quadrivalent, contains preservative; Translations: [INFLUENZA, INJECTABLE, QUADRIVALENT] Historical Provider [facility] Work Phone: 09-04-2018 influenza virus vaccine, unspecified formulation Ct (I-Stat) Work Phone: [facility] 06-15-2010 human papilloma viru s vaccine, quadrivalent Estelle Athy PA-C Work Phone: [facility] Work Phone: 02-11-2008 human papilloma viru s vaccine, quadrivalent Estelle Athy PA-C Work Phone: [facility] Work Phone: 02-11-2008 Meningococcal, MCV4, unspecified conjugate formulation(groups A, C, Y and W-135) Estelle Athy PA-C Work Phone: [facility] Work Phone: 02-11-2008 tetanus toxoid, reduced diphtheria toxoid, and acellular pertussis vaccine, adsorbed Estelle Athy PA-C Work Phone: [facility] Work Phone: 09-03-2002 diphtheria, tetanus toxoids and pertussis vaccine Estelle Athy PA-C Work Phone: [facility] Work Phone: 08-28-2001 measles, mumps and rubella virus vaccine Estelle Athy PA-C Work Phone: [facility] Work Phone: 04-28-1995 DTP-Haemophilus influenzae type b conjugate vaccine Estelle Athy PA-C Work Phone: [facility] Work Phone: 04-28-1995 hepatitis B vaccine, pediatric or pediatric/adolescent dosage Estelle Babcocky PA-C Work Phone: [facility] Work Phone: 04-28-1995 measles, mumps and rubella virus vaccine Estelle Babcocky PA-C Work Phone: [facility] Work Phone: 1994 DTP-Haemophilus influenzae type b conjugate vaccine Estelle Athy PA-C Work Phone: [facility] Work Phone: 1994 trivalent poliovirus vaccine, live, oral Estelle Babcocky PA-C Work Phone: [facility] Work Phone: 1994 diphtheria, tetanus toxoids and acellular pertussis vaccine Estelle Athy PA-C Work Phone: [facility] Work Phone: 1994 haemophilus influenz ae type b vaccine, HbOC conjugate Estelle Athy PA-C Work Phone: [facility] Work Phone: 1994 hepatitis B vaccine, pediatric or pediatric/adolescent dosage Estelle Athy PA-C Work Phone: [facility] Work Phone: 1994 trivalent poliovirus vaccine, live, oral Estelle Babcocky PA-C Work Phone: [facility] Work Phone: 1994 diphtheria, tetanus toxoids and acellular pertussis vaccine Estelle Athy PA-C Work Phone: [facility] Work Phone: 1994 haemophilus influenz ae type b vaccine, HbOC conjugate Estelle Athy PA-C [facility]: [facility] [facility] Work Phone: 1995 hepatitis B vaccine, pediatric or pediatric/adolescent dosage Estelle Athy PA-C Work Phone: [facility] Work Phone: 1995 trivalent poliovirus vaccine, live, oral Estelle Murphy RAOUL Work Phone: [facility] Work Phone: Payers Date Payer Category Payer Medicaid [id number] 2020 Unknown [employer] [id number] 2020-Present [id number] 2017 Unknown [id number] 1994 Unknown [id number] 1994 Unknown [id number] 1994 Unknown [id number] 1994 Unknown [id number] 1994 Unknown [id number] 1994 Unknown [id number] 1994 Unknown [id number] 1994 Unknown [id number] [id number] 1994 Unknown [id number] [id number] 1994 Unknown [id number] 1994 Unknown [id number] [id number] 1994 Unknown [id number] [id number] 1994 Unknown [id number] [id number] 1994 Unknown [id number] 1959 Unknown [id number] Unknown [employer]\[place] [employer] [facility] Social History Date Type Detail Facility Start: 06-29-2018 End: 11-19-2022 Tobacco smoking status MDIS Current every day smoker [facility] Work Phone: Start: 06-29-2018 End: 06-12-2023 Cigarettes smoked current (pack per day) - Reported [facility] Start: 1995 Sex Assigned At Not on file O [facility] History of tobacco use Cigarette Smoker O [facility] Work Phone: Start: 01-24-2021 Tobacco smoking stat us MDIS Former smoker [facility] Start: 01-24-2021 End: 11-19-2022 Tobacco use and exposure Never used [facility] Start: 01-24-2021 Alcohol intake Current drinke r of alcohol (finding) [facility] Start: 06-27-2018 Alcohol Comment occasional [facility] Start: 06-13-2022 End: 06-23-2022 Exposure to SARS-CoV-2 (event) Not sure [facility] Tobacco smoking consumption unknown [facility] Start: 06-23-2022 End: 12-03-2022 Alcohol intake Current non-drinker of alcohol (finding) [facility] Start: 06-15-2010 History SDOH Alcohol Comment no longer using alcohol [facility] Start: 06-15-2010 End: 11-15-2022 Tobacco Comment father smokes-pt states she quit smoking [facility] Start: 11-19-2022 Tobacco Comment father smokes- pt states she quit smoking1-2 cigarettes per day/also vaping. 12/27/22 [facility] Start: 06-12-2023 Tobacco use panel [facility] Clinical Notes 06-23-2022 to 06-12-2023 Missy Rhodes APRN.LIZETTE - 06/12/2023 11:53 AM Radha Murphy PA-C - 03/28/2023 2:41 PM Radha Murphy PA-C - 03/25/2023 3:24 PM Leora Dover RT(R) - 12/03/2022 10:20 AM EST Note Date & Type Note Facility 06-12-2023 Note HNO ID: [id number] Author: Missy Rhodes APRN.LIZETTE Service: ? Author Type: Nurse Practitioner Type: Progress Notes Filed: 06/12/2023 11:58 AM Note Text: Patient came in with complaints of significant amount of scabs on face scalp neck arms abdomen. Patient appears to be all over the place very fidgety spilling things knocking things over. Patient is covered from head to toe and quarter size bruises. At this time patient is being referred to the emergency room for full evaluation. Significant other is going to take her. [facility] 06-12-2023 History of Presen t illness Narrative Patient came in with complaints of significant amount of scabs on face scalp neck arms abdomen. Patient appears to be all over the place very fidgety spilling things knocking things over. Patient is covered from head to toe and quarter size bruises. At this time patient is being referred to the emergency room for full evaluation. Significant other is going to take her. documented in this encounter [facility] 03-28-2023 Note HNO ID: [id number] Author: Estelle Murphy PA-C Service: ? Author Type: Physician Piece Cutter Type: Progress Notes Filed: 03/28/2023 2:49 PM Note Text: This note was created using [employer]. Olu Kaur is a 28 year old female. HPI Patient presents with the chief complaint of weakness, feeling syncopal, palpitations and clamminess over the past 2 days. She feels very weak when she walks. She feels like her muscles are weak. She was seen on the second for strep and has been taking the antibiotics. She has had some nausea off and on and severe headaches. No chest pain or shortness of breath. She had a cough a couple days ago but that is gone. Her son also tested positive for strep today she was here. Her throat is feeling better. Review of Systems Constitutional: Positive for diaphoresis and fatigue. HENT: Negative. Musculoskeletal: Positive for myalgias. Neurological: Positive for weakness and headaches. All other systems reviewed and are negative. PAST MEDICAL HISTORY Diagnosis Date Unspecified hypothyroidism Congenital Current Outpatient Medications Medication Sig Dispense Refill amoxicillin (AMOXIL) 500 mg capsule Take 1 capsule by mouth twice daily for 10 days. 20 capsule 0 albuterol HFA (PROVENTIL HFA, VENTOLIN HFA) 90 mcg/actuation inhaler Inhale 2 Puffs as instructed every 4 hours as needed. 1 Each 5 ALPRAZolam (XANAX) 0.5 mg tablet VYVANSE 40 mg capsule copper (PARAGARD) 380 square mm intrauterine device by INTRAUTERINE route. PARoxetine (PAXIL) 40 mg tablet SYNTHROID 150 mcg tablet Take 1 tablet by mouth once daily. Take on empty stomach. For thyroid 30 tablet 5 nicotine (NICODERM CQ) 14 mg/24 hr Apply 1 Patch as directed every 24 hours for 14 days. 14 Patch 2 No current facility-administered medications for this visit. PAST SURGICAL HISTORY Procedure Laterality Date TONSILLECTOMY HX 11/24/2007 FAMILY HISTORY Problem Relation Age of Onset Diabetes Father Asthma Brother Asthma Brother Asthma Brother None Other Social History Tobacco Use Smoking status: Every Day Smokeless tobacco: Never Tobacco comments: father smokes-pt states she quit smoking 1-2 cigarettes per day/also vaping. 11/19/22 Substance Use Topics Alcohol use: No Comment: no longer using alcohol Drug use: No Objective BP 126/74 Pulse 117 Temp 36.9 ?C (98.5 ?F) (Tympanic) Resp 18 Wt 78.4 kg (172 lb 12.8 oz) LMP 06/22/2022 SpO2 98% BMI 31.81 kg/m? Physical Exam Vitals reviewed. Constitutional: Appearance: Normal appearance. She is diaphoretic. HENT: Head: Normocephalic and atraumatic. Right Ear: Tympanic membrane, ear canal and external ear normal. Left Ear: Tympanic membrane, ear canal and external ear normal. Nose: Nose normal. Mouth/Throat: Mouth: Mucous membranes are moist. Pharynx: Oropharynx is clear. Eyes: Extraocular Movements: Extraocular movements intact. Pupils: Pupils are equal, round, and reactive to light. Cardiovascular: Rate and Rhythm: Regular rhythm. Tachycardia present. Heart sounds: Normal heart sounds. Pulmonary: Effort: Pulmonary effort is normal. Breath sounds: Normal breath sounds. Musculoskeletal: Cervical back: Neck supple. Skin: General: Skin is warm. Coloration: Skin is pale. Neurological: General: No focal deficit present. Mental Status: She is alert and oriented to person, place, and time. Cranial Nerves: No cranial nerve deficit. Sensory: No sensory deficit. Motor: No weakness. Gait: Gait normal. Comments: Patient feels very dizzy upon sitting up. No nystagmus. Assessment and Plan ASSESSMENT/PLAN: 1. Near syncope - ICD9: 780.2, ICD10: R55 (primary diagnosis) Patient pale and diaphoretic appearing. Recommended she be seen in the emergency department for further evaluation. Her significant other will take her to [facility]. Report sent via ER passport. 2. Diaphoresis - ICD9: 780.8, ICD10: R61 Estelle Murphy PA-C [facility] 03-28-2023 History of Presen t illness Narrative This note was created using [employer]. Subjective Uriah Kaur is a 28 year old female. HPI Patient presents with the chief complaint of weakness, feeling syncopal, palpitations and clamminess over the past 2 days. She feels very weak when she walks. She feels like her muscles are weak. She was seen on the second for strep and has been taking the antibiotics. She has had some nausea off and on and severe headaches. No chest pain or shortness of breath. She had a cough a couple days ago but that is gone. Her son also tested positive for strep today she was here. Her throat is feeling better. Review of Systems Constitutional: Positive for diaphoresis and fatigue. HENT: Negative. Musculoskeletal: Positive for myalgias. Neurological: Positive for weakness and headaches. All other systems reviewed and are negative. PAST MEDICAL HISTORY Diagnosis Date Unspecified hypothyroidism Congenital Current Outpatient Medications Medication Sig Dispense Refill amoxicillin (AMOXIL) 500 mg capsule Take 1 capsule by mouth twice daily for 10 days. 20 capsule 0 albuterol HFA (PROVENTIL HFA, VENTOLIN HFA) 90 mcg/actuation inhaler Inhale 2 Puffs as instructed every 4 hours as needed. 1 Each 5 ALPRAZolam (XANAX) 0.5 mg tablet VYVANSE 40 mg capsule copper (PARAGARD) 380 square mm intrauterine device by INTRAUTERINE route. PARoxetine (PAXIL) 40 mg tablet SYNTHROID 150 mcg tablet Take 1 tablet by mouth once daily. Take on empty stomach. For thyroid 30 tablet 5 nicotine (NICODERM CQ) 14 mg/24 hr Apply 1 Patch as directed every 24 hours for 14 days. 14 Patch 2 No current facility-administered medications for this visit. PAST SURGICAL HISTORY Procedure Laterality Date TONSILLECTOMY HX 11/24/2007 FAMILY HISTORY Problem Relation Age of Onset Diabetes Father Asthma Brother Asthma Brother Asthma Brother None Other Social History Tobacco Use Smoking status: Every Day Smokeless tobacco: Never Tobacco comments: father smokes-pt states she quit smoking 1-2 cigarettes per day/also vaping. 11/19/22 Substance Use Topics Alcohol use: No Comment: no longer using alcohol Drug use: No Objective BP 126/74 Pulse 117 Temp 36.9 C (98.5 F) (Tympanic) Resp 18 Wt 78.4 kg (172 lb 12.8 oz) LMP 06/22/2022 SpO2 98% BMI 31.81 kg/m Physical Exam Vitals reviewed. Constitutional: Appearance: Normal appearance. She is diaphoretic. HENT: Head: Normocephalic and atraumatic. Right Ear: Tympanic membrane, ear canal and external ear normal. Left Ear: Tympanic membrane, ear canal and external ear normal. Nose: Nose normal. Mouth/Throat: Mouth: Mucous membranes are moist. Pharynx: Oropharynx is clear. Eyes: Extraocular Movements: Extraocular movements intact. Pupils: Pupils are equal, round, and reactive to light. Cardiovascular: Rate and Rhythm: Regular rhythm. Tachycardia present. Heart sounds: Normal heart sounds. Pulmonary: Effort: Pulmonary effort is normal. Breath sounds: Normal breath sounds. Musculoskeletal: Cervical back: Neck supple. Skin: General: Skin is warm. Coloration: Skin is pale. Neurological: General: No focal deficit present. Mental Status: She is alert and oriented to person, place, and time. Cranial Nerves: No cranial nerve deficit. Sensory: No sensory deficit. Motor: No weakness. Gait: Gait normal. Comments: Patient feels very dizzy upon sitting up. No nystagmus. Assessment and Plan ASSESSMENT/PLAN: 1. Near syncope - ICD9: 780.2, ICD10: R55 (primary diagnosis) Patient pale and diaphoretic appearing. Recommended she be seen in the emergency department for further evaluation. Her significant other will take her to [facility]. Report sent via ER passport. 2. Diaphoresis - ICD9: 780.8, ICD10: R61 Estelle Murphy PA-C documented in this encounter [facility] 03-25-2023 Note HNO ID: [id number] Author: Estelle Murphy PA-C Service: ? Author Type: Physician Piece Cutter Type: Progress Notes Filed: 03/25/2023 3:26 PM Note Text: This note was created using [employer]. Subjective Uriah Kaur is a 28 year old female. HPI Patient presents with a chief complaint of sore throat, headache, fever and fatigue for the past 3 days. Her son currently has strep throat. She denies cough. No vomiting or diarrhea. Review of Systems Constitutional: Positive for fatigue and fever. HENT: Positive for sore throat. Negative for congestion. Eyes: Negative. Respiratory: Negative. Cardiovascular: Negative. Gastrointestinal: Negative. Genitourinary: Negative. Musculoskeletal: Negative. Neurological: Positive for headaches. All other systems reviewed and are negative. PAST MEDICAL HISTORY Diagnosis Date Unspecified hypothyroidism Congenital Current Outpatient Medications Medication Sig Dispense Refill ALPRAZolam (XANAX) 0.5 mg tablet VYVANSE 40 mg capsule copper (PARAGARD) 380 square mm intrauterine device by INTRAUTERINE route. PARoxetine (PAXIL) 40 mg tablet SYNTHROID 150 mcg tablet Take 1 tablet by mouth once daily. Take on empty stomach. For thyroid 30 tablet 5 amoxicillin (AMOXIL) 500 mg capsule Take 1 capsule by mouth twice daily for 10 days. 20 capsule 0 albuterol HFA (PROVENTIL HFA, VENTOLIN HFA) 90 mcg/actuation inhaler Inhale 2 Puffs as instructed every 4 hours as needed. 1 Each 5 nicotine (NICODERM CQ) 14 mg/24 hr Apply 1 Patch as directed every 24 hours for 14 days. 14 Patch 2 No current facility-administered medications for this visit. PAST SURGICAL HISTORY Procedure Laterality Date TONSILLECTOMY HX 11/24/2007 FAMILY HISTORY Problem Relation Age of Onset Diabetes Father Asthma Brother Asthma Brother Asthma Brother None Other Social History Tobacco Use Smoking status: Every Day Smokeless tobacco: Never Tobacco comments: father smokes-pt states she quit smoking 1-2 cigarettes per day/also vaping. 11/19/22 Substance Use Topics Alcohol use: No Comment: no longer using alcohol Drug use: No Objective BP 118/68 Pulse 92 Temp 37 ?C (98.6 ?F) Resp 16 Wt 80 kg (176 lb 6.4 oz) LMP 06/22/2022 SpO2 98% BMI 32.47 kg/m? Physical Exam Vitals reviewed. Constitutional: Appearance: Normal appearance. HENT: Head: Normocephalic and atraumatic. Right Ear: Tympanic membrane, ear canal and external ear normal. Left Ear: Tympanic membrane, ear canal and external ear normal. Nose: Nose normal. Mouth/Throat: Mouth: Mucous membranes are moist. Pharynx: Uvula midline. Pharyngeal swelling, posterior oropharyngeal erythema and uvula swelling present. No oropharyngeal exudate. Tonsils: 1+ on the right. 1+ on the left. Cardiovascular: Rate and Rhythm: Normal rate and regular rhythm. Heart sounds: Normal heart sounds. Pulmonary: Effort: Pulmonary effort is normal. Breath sounds: Normal breath sounds. Musculoskeletal: Cervical back: Neck supple. Lymphadenopathy: Cervical: Cervical adenopathy present. Skin: General: Skin is warm and dry. Neurological: General: No focal deficit present. Mental Status: She is alert and oriented to person, place, and time. Assessment and Plan ASSESSMENT/PLAN: 1. Strep pharyngitis - ICD9: 034.0, ICD10: J02.0 - Alere Strep Test positive, no culture pending - Amoxicillin for 10 days. - Discussed supportive care treatment with fluids, rest and analgesia. - Contagious dz precautions discussed- including considered contagious until on antibiotics for 24 hours - The patient should follow up in 3-5 days if symptoms persist or worsen - STREP A MOLECULAR (POC) Estelle Murphy PA-C [facility] 03-25-2023 History of Presen t illness Narrative This note was created using [employer]. Subjective Uriah Kaur is a 28 year old female. HPI Patient presents with a chief complaint of sore throat, headache, fever and fatigue for the past 3 days. Her son currently has strep throat. She denies cough. No vomiting or diarrhea. Review of Systems Constitutional: Positive for fatigue and fever. HENT: Positive for sore throat. Negative for congestion. Eyes: Negative. Respiratory: Negative. Cardiovascular: Negative. Gastrointestinal: Negative. Genitourinary: Negative. Musculoskeletal: Negative. Neurological: Positive for headaches. All other systems reviewed and are negative. PAST MEDICAL HISTORY Diagnosis Date Unspecified hypothyroidism Congenital Current Outpatient Medications Medication Sig Dispense Refill ALPRAZolam (XANAX) 0.5 mg tablet VYVANSE 40 mg capsule copper (PARAGARD) 380 square mm intrauterine device by INTRAUTERINE route. PARoxetine (PAXIL) 40 mg tablet SYNTHROID 150 mcg tablet Take 1 tablet by mouth once daily. Take on empty stomach. For thyroid 30 tablet 5 amoxicillin (AMOXIL) 500 mg capsule Take 1 capsule by mouth twice daily for 10 days. 20 capsule 0 albuterol HFA (PROVENTIL HFA, VENTOLIN HFA) 90 mcg/actuation inhaler Inhale 2 Puffs as instructed every 4 hours as needed. 1 Each 5 nicotine (NICODERM CQ) 14 mg/24 hr Apply 1 Patch as directed every 24 hours for 14 days. 14 Patch 2 No current facility-administered medications for this visit. PAST SURGICAL HISTORY Procedure Laterality Date TONSILLECTOMY HX 11/24/2007 FAMILY HISTORY Problem Relation Age of Onset Diabetes Father Asthma Brother Asthma Brother Asthma Brother None Other Social History Tobacco Use Smoking status: Every Day Smokeless tobacco: Never Tobacco comments: father smokes-pt states she quit smoking 1-2 cigarettes per day/also vaping. 11/19/22 Substance Use Topics Alcohol use: No Comment: no longer using alcohol Drug use: No Objective BP 118/68 Pulse 92 Temp 37 C (98.6 F) Resp 16 Wt 80 kg (176 lb 6.4 oz) LMP 06/22/2022 SpO2 98% BMI 32.47 kg/m Physical Exam Vitals reviewed. Constitutional: Appearance: Normal appearance. HENT: Head: Normocephalic and atraumatic. Right Ear: Tympanic membrane, ear canal and external ear normal. Left Ear: Tympanic membrane, ear canal and external ear normal. Nose: Nose normal. Mouth/Throat: Mouth: Mucous membranes are moist. Pharynx: Uvula midline. Pharyngeal swelling, posterior oropharyngeal erythema and uvula swelling present. No oropharyngeal exudate. Tonsils: 1+ on the right. 1+ on the left. Cardiovascular: Rate and Rhythm: Normal rate and regular rhythm. Heart sounds: Normal heart sounds. Pulmonary: Effort: Pulmonary effort is normal. Breath sounds: Normal breath sounds. Musculoskeletal: Cervical back: Neck supple. Lymphadenopathy: Cervical: Cervical adenopathy present. Skin: General: Skin is warm and dry. Neurological: General: No focal deficit present. Mental Status: She is alert and oriented to person, place, and time. Assessment and Plan ASSESSMENT/PLAN: 1. Strep pharyngitis - ICD9: 034.0, ICD10: J02.0 - Alere Strep Test positive, no culture pending - Amoxicillin for 10 days. - Discussed supportive care treatment with fluids, rest and analgesia. - Contagious dz precautions discussed- including considered contagious until on antibiotics for 24 hours - The patient should follow up in 3-5 days if symptoms persist or worsen - STREP A MOLECULAR (POC) Estelle Murphy PA-C documented in this encounter [facility] 12-03-2022 Note HNO ID: [id number] Author: RT Chandler(R) Service: ? Author Type: Correctional Program Specialist Type: Progress Notes Filed: 12/03/2022 10:58 AM Note Text: Radiology Service Progress Note DATE OF SERVICE: December 03, 2022 TIME: 10:57 AM PATIENT IDENTITY VERIFICATION COMPLETED USING TWO (2) STANDARD IDENTIFIERS: Name and Date of confirmed by patient verbally. FALL SCREENING: Has the patient had 2 falls in the last year or 1 fall with injury or currently using an Ambulatory Assistive Device (Walker, Cane, Wheelchair, Crutches, etc.)? No PATIENT GENDER DATA: Female. status: : No status: NO. PATIENT RELEVANT IMPLANT DATA REVIEWED: Yes ALLERGIES: Reviewed and unchanged CONTRAST ALLERGY: NO. EXAM: CT -CONTRAST INDUCED NEPHROPATHY RISK FACTORS: Not applicable CREATININE: No results found for: CREAT, EGFROTH, EGFRAA P.O.C.T. RESULTS: POC done: Yes, See Lab Tab December 03, 2022 TREATMENT: N/A PERIPHERAL IV DATA: Ambulatory: A peripheral IV was started in the Left antecubital site with a Angio cath: 22 gauge. RADIOLOGY DEPARTMENT: CT; Exam(s) Completed: Chest SIGNATURE: RT Brooklynn(R) PATIENT NAME: Uriah Kaur DATE: December 03, 2022 TIME: 10:57 AM [facility] 12-03-2022 Note HNO ID: [id number] Author: DALY Nathan Service: ? Author Type: Respiratory Therapist Type: Procedures Filed: 12/03/2022 9:54 AM Note Text: RESPIRATORY THERAPY ORAL EXHALED NITRIC OXIDE SERVICE DATE: 12/03/2022 SERVICE TIME: 9:54 AM Oral Exhaled Nitric Oxide measurement: 8.0 (ppb) Normal: Adult 5-20 ppb, pediatric (<12 years) 5-15 ppb High Normal / Increased: Adult 20-35 ppb, pediatric (<12 years) 15-25 ppb Moderately raised exhaled Nitric Oxide may indicate underlying inflammation, but note that: Cold and influenza can raise exhaled Nitric Oxide and some patients have higher baseline exhaled Nitric Oxide levels than others. High: Adult >35 ppb, pediatric (<12 years) >25 ppb Indicative of ongoing eosinophilic inflammation. Symptomatic patient likely to respond to steroids. Possible causes (if already on steroids): Poor compliance, recent allergen exposure, steroid dose inadequate, and steroid resistance. Note that not all patients with high exhaled nitric oxide levels display symptoms. Oral Exhaled Nitric Oxide measurement (Previous Encounters) Test Date Oral Exhaled Nitric Oxide (ppb) 12/03/2022 8.0 NAME: DALY Nathan PATIENT NAME: Uriah Kaur DATE: December 03, 2022 TIME: 9:54 AM [facility] 12-03-2022 Note HNO ID: [id number] Author: DALY Nathan Service: ? Author Type: Respiratory Therapist Type: Progress Notes Filed: 12/03/2022 9:52 AM Note Text: PULM FUNCTION SMARTBLOCK: Provider: Nayely Newman MD Assisting Tech: DALY Nathan Spirometry: 1 Exhaled Nitric Oxide: 1 [facility] 12-03-2022 History of Presen t illness Narrative Radiology Service Progress Note DATE OF SERVICE: December 03, 2022 TIME: 10:57 AM PATIENT IDENTITY VERIFICATION COMPLETED USING TWO (2) STANDARD IDENTIFIERS: Name and Date of confirmed by patient verbally. FALL SCREENING: Has the patient had 2 falls in the last year or 1 fall with injury or currently using an Ambulatory Assistive Device (Walker, Cane, Wheelchair, Crutches, etc.)? No PATIENT GENDER DATA: Female. status: : No status: NO. PATIENT RELEVANT IMPLANT DATA REVIEWED: Yes ALLERGIES: Reviewed and unchanged CONTRAST ALLERGY: NO. EXAM: CT -CONTRAST INDUCED NEPHROPATHY RISK FACTORS: Not applicable CREATININE: No results found for: CREAT, EGFROTH, EGFRAA P.O.C.T. RESULTS: POC done: Yes, See Lab Tab December 03, 2022 TREATMENT: N/A PERIPHERAL IV DATA: Ambulatory: A peripheral IV was started in the Left antecubital site with a Angio cath: 22 gauge. RADIOLOGY DEPARTMENT: CT; Exam(s) Completed: Chest SIGNATURE: RT Brooklynn(Fabiola) PATIENT NAME: Uriah Kaur DATE: December 03, 2022 TIME: 10:57 AM documented in this encounter [facility] 12-03-2022 Procedure note Associated Ord er(s): NITRIC OXIDE, EXHALED RESPIRATORY THERAPY ORAL EXHALED NITRIC OXIDE SERVICE DATE: 12/03/2022 SERVICE TIME: 9:54 AM Oral Exhaled Nitric Oxide measurement: 8.0 (ppb) Normal: Adult 5-20 ppb, pediatric (<12 years) 5-15 ppb High Normal / Increased: Adult 20-35 ppb, pediatric (<12 years) 15-25 ppb Moderately raised exhaled Nitric Oxide may indicate underlying inflammation, but note that: Cold and influenza can raise exhaled Nitric Oxide and some patients have higher baseline exhaled Nitric Oxide levels than others. High: Adult >35 ppb, pediatric (<12 years) >25 ppb Indicative of ongoing eosinophilic inflammation. Symptomatic patient likely to respond to steroids. Possible causes (if already on steroids): Poor compliance, recent allergen exposure, steroid dose inadequate, and steroid resistance. Note that not all patients with high exhaled nitric oxide levels display symptoms. Oral Exhaled Nitric Oxide measurement (Previous Encounters) Test Date Oral Exhaled Nitric Oxide (ppb) 12/03/2022 8.0 NAME: DALY Nathan PATIENT NAME: Uriah Kaur DATE: December 03, 2022 TIME: 9:54 AM documented in this encounter [facility] 12-03-2022 History of Presen t illness Narrative PULM FUNCTION SMARTBLOCK: Provider: Nayely Newman MD Assisting Tech: DALY Nathan Spirometry: 1 Exhaled Nitric Oxide: 1 documented in this encounter [facility] 11-19-2022 Note HNO ID: [id number] Author: Nayely Newman MD Service: ? Author Type: Physician Type: Progress Notes Filed: 11/19/2022 12:57 PM Note Text: . [facility] [place] Note Patient name: Uriah Kaur PCP: No primary care provider on file. Referring Physician: [facility] CC: Abnormal CXR HPI: Uriah Kaur 27 year old obese female smoker with PMH only significant for hypothyroidism, h/p COVID being referred from [facility] for abnormal CXR. Seen in [facility] for cough, fever. She had significant shortness of breath and chest pressure as well as sputum production brown to yellow in color. Her son tested positive for influenza A. She subsequently also tested positive for Infuenza A and CXR showed a prominent left hilum. Feeling somewhat better but continues to have significant phlegm production, chest tightness/heaviness, wheezing. Fevers resolved yesterday. She has been using her son's albuterol inhaler with minimal relief. Prior to her illness, she has had some intermittent issues with shortness of breath and chest tightness. Never formally diagnosed with asthma although she has a strong family history of asthma and eczema. She is a current 1 to 4 cigarettes a day smoker as well as vaping nicotine 5 to 10 mg a day. She is interested in smoking cessation and was inquiring about nicotine replacement therapy. DATA: Labs: Influenza A PCR Negative for Influenza A by RT-PCR Positive for Influenza A by RT-PCR Abnormal Imaging / Diagnostic Studies: DATE OF EXAM: Nov 15 2022 4:10PM WOX 5291 - XR CHEST 2V FRONTAL/LAT / CLINICAL HISTORY: Acute cough SOB (shortness of breath) MQ: XC2_6 EXAM DATE/TIME: 11/15/2022 4:10 PM COMPARISON: No relevant prior studies available. RESULT: Lines, tubes, and devices: None. Lungs and pleura: No consolidation. No lung mass. No pleural effusion. No pneumothorax. Cardiomediastinal silhouette: The cardiac silhouette is within normal limits. There is prominence of the left hilum. Bones and soft tissues: Unremarkable. IMPRESSION: No acute radiographic abnormality in the lungs. Prominent left hilum. Consider follow-up. I personally reviewed images as well as with the patient which just showed a slight prominence to her left hilum. No obvious mass. PAST MEDICAL HISTORY Diagnosis Date Unspecified hypothyroidism Congenital ALLERGIES Allergen Reactions Buspirone Other: See Comments suicidal suicidal doxycycline hyclate (VIBRAMYCIN) 100 mg capsule Take 1 capsule by mouth twice daily for 7 days. albuterol HFA (PROVENTIL HFA, VENTOLIN HFA) 90 mcg/actuation inhaler Inhale 2 Puffs as instructed every 4 hours as needed. iv contrast (will be provided with radiology test) CT Chest W -Inject, intravenously, once for 1 dose.No IV access, insert saline lock prior to the beginning of sedation, infusion, injection of imaging exam. Discontinue saline lock post exam. If Pt. has a central line or IVAD, may access for administration according to line specific nursing protocol. Once exam is complete flush line and de-access according to line specific nursing protocol in the CT contrast administration guidelines link. nicotine (NICODERM CQ) 14 mg/24 hr Apply 1 Patch as directed every 24 hours for 14 days. ALPRAZolam (XANAX) 0.5 mg tablet VYVANSE 40 mg capsule copper (PARAGARD) 380 square mm intrauterine device by INTRAUTERINE route. PARoxetine (PAXIL) 40 mg tablet SYNTHROID 150 mcg tablet Take 1 tablet by mouth once daily. Take on empty stomach. For thyroid Social History Tobacco Use Smoking status: Every Day Smokeless tobacco: Never Tobacco comments: father smokes-pt states she quit smoking 1-2 cigarettes per day/also vaping. 11/19/22 Substance Use Topics Alcohol use: No Comment: no longer using alcohol Drug use: No [employer]. Pets: Cats FAMILY HISTORY Problem Relation Age of Onset Diabetes Father Asthma Brother Asthma Brother Asthma Brother None Other PAST SURGICAL HISTORY Procedure Laterality Date TONSILLECTOMY HX 11/24/2007 PMH, Social history, family history and surgical history reviewed and updated in EMR REVIEW OF SYSTEMS: CONSTITUTIONAL: No current fevers, chills, nightsweats, unintended weight loss HEENT: Denies nasal congestion/sinus symptoms,allergy problems, postnasal drip EYES: No diplopia or blurry vision, itchy eyes CARDIOVASCULAR: No palpitations, edema. PULM: See HPI GI: No dysphagia/odynophagia, problematic reflux, constipation, diarrhea, nausea or vomiting : No urinary complaints, including dysuria, gross hematuria or pyuria. NEURO: Nobalance problems, peripheral weakness/paresthesias or numbness of concern. MUSC-SKEL: No joint pain, swelling, or erythema. PSY: No concerns regarding depression, anxiety INTEGUMENTARY: Possible eczema, skin sensitivity PHYSICAL EXAMINATION: BP 122/78 Pulse 109 Resp 18 (more content not included)... [facility] 11-19-2022 History of Presen t illness Narrative Images from the original note were not included. . [facility] [place] Note Patient name: Uriah Kaur PCP: No primary care provider on file. Referring Physician: [facility] CC: Abnormal CXR HPI: Uriah Kaur 27 year old obese female smoker with PMH only significant for hypothyroidism, h/p COVID being referred from [facility] for abnormal CXR. [facility], fever. She had significant shortness of breath and chest pressure as well as sputum production brown to yellow in color. Her son tested positive for influenza A. She subsequently also tested positive for Infuenza A and CXR showed a prominent left hilum. Feeling somewhat better but continues to have significant phlegm production, chest tightness/heaviness, wheezing. Fevers resolved yesterday. She has been using her son's albuterol inhaler with minimal relief. Prior to her illness, she has had some intermittent issues with shortness of breath and chest tightness. Never formally diagnosed with asthma although she has a strong family history of asthma and eczema. She is a current 1 to 4 cigarettes a day smoker as well as vaping nicotine 5 to 10 mg a day. She is interested in smoking cessation and was inquiring about nicotine replacement therapy. DATA: Labs: Influenza A PCR Negative for Influenza A by RT-PCR Positive for Influenza A by RT-PCR Abnormal Imaging / Diagnostic Studies: DATE OF EXAM: Nov 15 2022 4:10PM WOX 5291 - XR CHEST 2V FRONTAL/LAT / CLINICAL HISTORY: Acute cough SOB (shortness of breath) MQ: XC2_6 EXAM DATE/TIME: 11/15/2022 4:10 PM COMPARISON: No relevant prior studies available. RESULT: Lines, tubes, and devices: None. Lungs and pleura: No consolidation. No lung mass. No pleural effusion. No pneumothorax. Cardiomediastinal silhouette: The cardiac silhouette is within normal limits. There is prominence of the left hilum. Bones and soft tissues: Unremarkable. IMPRESSION: No acute radiographic abnormality in the lungs. Prominent left hilum. Consider follow-up. I personally reviewed images as well as with the patient which just showed a slight prominence to her left hilum. No obvious mass. PAST MEDICAL HISTORY Diagnosis Date Unspecified hypothyroidism Congenital ALLERGIES Allergen Reactions Buspirone Other: See Comments suicidal suicidal doxycycline hyclate (VIBRAMYCIN) 100 mg capsule Take 1 capsule by mouth twice daily for 7 days. albuterol HFA (PROVENTIL HFA, VENTOLIN HFA) 90 mcg/actuation inhaler Inhale 2 Puffs as instructed every 4 hours as needed. iv contrast (will be provided with radiology test) CT Chest W -Inject, intravenously, once for 1 dose.No IV access, insert saline lock prior to the beginning of sedation, infusion, injection of imaging exam. Discontinue saline lock post exam. If Pt. has a central line or IVAD, may access for administration according to line specific nursing protocol. Once exam is complete flush line and de-access according to line specific nursing protocol in the CT contrast administration guidelines link. nicotine (NICODERM CQ) 14 mg/24 hr Apply 1 Patch as directed every 24 hours for 14 days. ALPRAZolam (XANAX) 0.5 mg tablet VYVANSE 40 mg capsule copper (PARAGARD) 380 square mm intrauterine device by INTRAUTERINE route. PARoxetine (PAXIL) 40 mg tablet SYNTHROID 150 mcg tablet Take 1 tablet by mouth once daily. Take on empty stomach. For thyroid Social History Tobacco Use Smoking status: Every Day Smokeless tobacco: Never Tobacco comments: father smokes-pt states she quit smoking 1-2 cigarettes per day/also vaping. 11/19/22 Substance Use Topics Alcohol use: No Comment: no longer using alcohol Drug use: No [employer]. Pets: Cats FAMILY HISTORY Problem Relation Age of Onset Diabetes Father Asthma Brother Asthma Brother Asthma Brother None Other PAST SURGICAL HISTORY Procedure Laterality Date TONSILLECTOMY HX 11/24/2007 PMH, Social history, family history and surgical history reviewed and updated in EMR REVIEW OF SYSTEMS: CONSTITUTIONAL: No current fevers, chills, nightsweats, unintended weight loss HEENT: Denies nasal congestion/sinus symptoms,allergy problems, postnasal drip EYES: No diplopia or blurry vision, itchy eyes CARDIOVASCULAR: No palpitations, edema. PULM: See HPI GI: No dysphagia/odynophagia, problematic reflux, constipation, diarrhea, nausea or vomiting : No urinary complaints, including dysuria, gross hematuria or pyuria. NEURO: Nobalance problems, peripheral weakness/paresthesias or numbness of concern. MUSC-SKEL: No joint pain, swelling, or erythema. PSY: No concerns regarding depression, anxiety INTEGUMENTARY: Possible eczema, skin sensitivity PHYSICAL EXAMINATION: BP 122/78 Pulse 109 Resp 18 Wt 168 lb (76.2kg) SpO2 98% LMP 06/22/2022 General Appearance: Age-appropriate female, NAD Skin: Skin color, texture, turgor normal, no suspicious lesions. Possible eczema Head: Normocephalic, no masses, lesions, tenderness or abnormalities. Eyes: Sclera, conjunctiva normal Oropharynx: Normal dentition, no posterior pharyngeal erythema Neck: No JVD, no masses, no thyromegaly Lungs: Not labored, normal to percussion, diffuse rhonchi Heart: Regular rate and rhythm, no murmurs gallops Extremities: No edema or clubbing Musculoskeletal: No joint deformities or effusions Neurologic: Alert and oriented, no focal findings. Lymph Nodes: No cervical lymphadenopathy and No supraclavicular lymphadenopathy. Assessment/Plan: 1. Abnormal chest x-ray -Prominence of left hilum possibly representing adenopathy -Chest CT with IV contrast for further delineation 2. Shortness of breath -Character of current sputum production suggestive of superimposed bronchitis -Clinical history suspicious for asthma -Doxycycline and albuterol as needed -PFTs and exhaled nitric oxide level -Smoking cessation. Nicoderm patches Nayely Newman MD [facility] [place] documented in this encounter [facility] 11-16-2022 Miscellaneous Notes Patient tested positive for influenza A. She is within treatment window for tamiflu. Left message on voicemail to check [employer] for message. documented in this encounter [facility] 11-15-2022 Influenza virus A and B RNA and SARS-CoV-2 (COVID-19) N gene panel KIKO+probe (Resp) COVID 19 RESULT: SARS-CoV-2 (Agent of COVID-19) Not Detected by RT-PCR or equivalent method. ortiz [id number] [employer] (ESTER)_EUA This test was developed and its performance characteristics determined by [facility]'s [facility] [place]. This test has been authorized by FDA under an Emergency Use Authorization (EUA). This test has been validated in accordance with the FDA's Guidance Document Policy for Diagnostics Testing in Laboratories Certified to Perform High Complexity Testing under CLIA prior to Emergency use Authorization for Coronavirus Disease 2019 during the Public Health Emergency issued on January 22, 2020. Test performed by [facility], [facility] [place], [address] [id number]. INFLUENZA A PCR: Positive for Influenza A by RT-PCR INFLUENZA B PCR: Negative for Influenza B by RT-PCR [facility] Diagnosis Acute cough- Primary SOB (shortness of breath) Shortness of breath Influenza-like illness Influenza with other respiratory manifestations Abnormal CXR Other nonspecific abnormal finding of lung field [facility] Diagnosis Abnormality of lung on CXR- Primary SOB (shortness of breath) Shortness of breath [facility] Diagnosis SOB (shortness of breath) Shortness of breath [facility] Diagnosis SOB (shortness of breath) Shortness of breath [facility] Diagnosis Strep pharyngitis- Primary Streptococcal sore throat [facility]* Diagnosis Near syncope- Primary Syncope and collapse Diaphoresis Generalized hyperhidrosis [facility] Diagnosis Bruising- Primary Contusion of unspecified site [facility] Diagnosis Abnormality of lung on CXR [facility] Outpatient Procedure (Routine) - Authorized Specialty Diagnoses / Procedures Referred By Michael javier Referred To [facility] Diagnoses SOB (shortness of breath) Procedures NITRIC OXIDE, EXHALED NITRIC OXIDE GAS DETERMINATION Nayely Newman MD [address] [place] [address] [facility] [place] [address] [place], [place] [id number] Referral ID Status Reason Start Date Expiration Date Visits Requested Visits Authorized [id number] Authorized Auto-Generat ed Referral 2 12/19/2023 1 1 * Outpatient Procedure (Routine) - Authorized Specialty Diagnoses / Procedures Referred By Michael javier Referred To [facility] Diagnoses SOB (shortness of breath) Procedures SPIROMETRY WITH DILATOR IF OBSTRUCTED BRNCDILAT RSPSE SPMTRY PRE&POST-BRNCDILAT ADMN Nayely Newman MD [address] [place] [address] [facility] [place] [address] [place] [address] Referral ID Status Reason Start Date Expiration Date Visits Requested Visits Authorized [id number] Authorized Auto-Generat ed Referral 2 12/19/2023 1 1 * MRI/CT (Routine) - Authorized Specialty Diagnoses / Procedures Referred By Michael t Referred To Contact CT IMAGING Diagnoses Abnormality of lung on CXR Procedures CT CHEST W IVCON DIAGNOSTIC COMPUTED TOMOGRAPHY THORAX W/CONTRAST Nayely Newman MD [address] [place] [address] Ct Imaging Referral ID Status Reason Start Date Expiration Date Visits Requested Visits Authorized [id number] Authorized Auto-Generat ed Referral 2 01/02/2023 1 1 * Medication Prior Authorization - Pending Review Specialty Diagnoses / Procedures Referred By Michael javier Referred To Contact Nayely Newman MD [address] [place] [address] Referral ID Status Reason Start Date Expiration Date V isits Requested Visits Authorized [id number] Pending Review 1 1 [facility] Assessments Note Patient: URIAH KAUR MRN: [id number] Age: 23 years Sex: Female : 1995 Associated Diagnoses: None Author: Dionte Coker DO Supervising Physician Comments Documentation By: Resident Physician. Health Status Allergies Allergic Reactions (Selected) No Known Medication Allergies Subjective Patient examined at bedside. No complaints. Discussed we are waiting on placement for her at an inpatient psych facility Objective Last Charted Vital Signs Temperature: 98.2 (10/02 05:00) Pulse: 72 (10/02 05:00) Respiration: 16 (10/02 05:00) BP: 95/61 (10/02 05:00) Pulse Ox: 96 (10/02 05:00) Oxygen Delivery: Room air (10/01 23:45) Pain Score: 5 (10/02 05:00) General: 23 yo overweight female , NAD, alert, oriented Head: NC/AT, Eyes: EOMI, PERRL Ears/nose: no external lacerations, no drainage Neck: trachea supple and midline, no thyromegaly or lymphadenopathy Lungs: Equal bilateral breath sounds CTA Heart: S1, S2, RRR, no gallops or rubs Abdominal: Bowel sounds present (more content not included)... Note DICTATED BY:SAMANTHA FOX MD SERVICE DATE:10/01/2018 PSYCHIATRIC CONSULTATION DATE OF EVALUATION: 10/01/2018 REASON FOR CONSULTATION: Suicidal attempt. HISTORY OF PRESENT ILLNESS: The patient is a 23-year-old single female with a history of depression and anxiety who presented to the hospital after she overdosed on 96 tablets of doxylamine in a suicide attempt. The patient reported that she did this because she was overwhelmed by working full-time and being in full, full-time. This is actually her second overdose in the past few months. She was just recently hospitalized at [facility] in June for a similar overdose. The patient reported the overdose was relatively impulsive. She does state that she does not feel her medications are helping her appropriately and she has not been doing well. She was somewhat minimizing of this suicide attempt today, but once again has had repeated serious suicide attempts recently. PAST PSYCHIATRIC HISTORY: The patient reports she has had 4 ps (more content not included)... Diagnosis Ingested substance, unknown drug, intentional self-harm, initial encounter ([facility] - Primary Alcoholic intoxication witho ut complication ([facility]) Diagnosis Severe episode of recurrent major depressive disorder, without psychotic features ([facility]) - Primary Intentional drug overdose, i nitial encounter ([facility]) Nicotine use disorder Tobacco use disorder Hypothyroidism Unspecified hypothyroidism Diagnosis Nausea and vomiting, intractability of vomiting not specified, unspecified vomiting type- Primary Hypothyroidism, unspecified type Gastroesophageal reflux disease, unspecified whether esophagitis present Bloating Flatulence, eructation, and gas pain Constipation, unspecified constipation type Bipolar affective disorder, remission status unspecified ([facility]) Encounter for lipid screening for cardiovascular disease Encounter for screening for diabetes mellitus Screening for deficiency anemia Screening for other and unspecified deficiency anemia Hospital Course Note EMERGENCY DEPARTMENT DISCHAR GE SUMMARY PATIENT NAME:URIAH KAUR MRN: [id number] AGE: 23 Years SEX: Female PHONE:[phone] DOS: 09/30/2018 5:31 PM : 1995 ATTENDING PHYSICIAN:Valentin Rizvi PCP: Kiki Tubbs NP CHIEF COMPLAINT: SI Allergies No Known Medication Allergies Problems No Problems Documented DISCHARGE DIAGNOSIS: DISCHARGE INSTRUCTIONS: ED PHYSICIAN DOCUMENTATION: DISPOSITION: Time of Departure From ER 09/30/2018 21:24 Discharge/Transfer From ER Admit to inpatient MEDICATION LISTS: CURRENT MEDICATION LIST BusPIRone (busPIRone 7.5 mg oral tablet) 1 Tab(s) By Mouth Twice a day. levothyroxine (levothyroxine 150 mcg (0.15 mg) oral tablet) 1 Tab(s) By Mouth before Breakfast. MEDICATIONS GIVEN DURING MEDICAL VISIT Sodium Chloride 0.9% 1,000 mL last dose given on 09/30/2018 at 17:58 Route: Intravenous Bolus, Infuse over 60 mins. lorazepam 0.5 mg last dose given on 09/30/2018 at 18:54 Route: IV Push IVP rate not to exceed 2 mg/min. magnesium sulfate 2 Gm last (more content not included)... Note Patient: URIAH KAUR MRN: [id number] Age: 23 years Sex: Female : 1995 Associated Diagnoses: None Author: Nadya Gordon DO Supervising Physician Comments Documentation By: Resident Physician. Discharge Information Admit Date: 09/30/18 17:31 Discharge Date: 10/02/18 17:08 Discharge Disposition: Psychiatric inpatient facility 64 Reason For Visit: OD Attending Physician: Valentin Rizvi Consulting Physician: Trinh Ramos MD Consulting Physician: aSmantha Fox DO Primary Care Physician: Kiki Tubbs NP Active/Final Diagnosis(es) #Overdose on doxylamine with suicidal intention #Hypokalemia, resolved #Suprapubic pain possibly related to menstrual cycle #Leukocytosis, suspect reactive - improving #Tachycardia/Tachypnea, resolved #Depression #Presumed Hypothyroidism . Hospital Course Hospital Course Uriah Kaur is a 23 year-old female with a past medical history of multiple suicide attempts who presented to [facility] on 09/30/18 after suicide att (more content not included)... Note Patient: URIAH KAUR Age: 23 years Sex: Female : 1995 Associated Diagnoses: None Author: Dionte Coker DO Supervising Physician Comments Documentation By: Resident Physician. Health Status Allergies Allergic Reactions (Selected) No Known Medication Allergies Subjective Patient examined at bedside. No complaints. Discussed we are waiting on placement for her at an inpatient psych facility Objective Last Charted Vital Signs Temperature: 98.2 (10/02 05:00) Pulse: 72 (10/02 05:00) Respiration: 16 (10/02 05:00) BP: 95/61 (10/02 05:00) Pulse Ox: 96 (10/02 05:00) Oxygen Delivery: Room air (10/01 23:45) Pain Score: 5 (10/02 05:00) General: 23 yo overweight female , NAD, alert, oriented Head: NC/AT, Eyes: EOMI, PERRL Ears/nose: no external lacerations, no drainage Neck: trachea supple and midline, no thyromegaly or lymphadenopathy Lungs: Equal bilateral breath sounds CTA Heart: S1, S2, RRR, no gallops or rubs Abdominal: Bowel sounds present (more content not included)... Note DICTATED BY:SAMANTHA FOX MD SERVICE DATE:10/01/2018 PSYCHIATRIC CONSULTATION DATE OF EVALUATION: 10/01/2018 REASON FOR CONSULTATION: Suicidal attempt. HISTORY OF PRESENT ILLNESS: The patient is a 23-year-old single female with a history of depression and anxiety who presented to the hospital after she overdosed on 96 tablets of doxylamine in a suicide attempt. The patient reported that she did this because she was overwhelmed by working full-time and being in full, full-time. This is actually her second overdose in the past few months. She was just recently hospitalized at [facility] in June for a similar overdose. The patient reported the overdose was relatively impulsive. She does state that she does not feel her medications are helping her appropriately and she has not been doing well. She was somewhat minimizing of this suicide attempt today, but once again has had repeated serious suicide attempts recently. PAST PSYCHIATRIC HISTORY: The patient reports she has had 4 ps (more content not included)... 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 female. Presents to the office today to establish care as a new patient. Was not previously seen by PCP. Did follow with counselor at [facility] recently. In the past, she was on vraylarfor 9 mos, as well as prozac, and did not ever notice a difference with this. She reports seeing a psych provider who gave her these medications and they told her she had bipolar disorder and anxiety. Did see the counselor at [facility] recently and they told her she has anxiety and possible ADHD. Also has hypothyroidism. Was given the medication at [facility]. Has not been changed since 2019 when she was . She reports concerns about vomiting after eating. It does not matter how much she eats, she gets very nauseated afterward. She gets really bad heartburn. Did have a scope done 3 years ago at [facility]. The did not find anything. The following portions of the patient's history were reviewed and updated as appropriate: allergies, current medications, past family history, past medical history, past social history, past surgicalhistory and problem list. Review of Systems Constitutional: Positive for appetite change (due to nausea) and fatigue. Negative for fever and unexpected weight change. HENT: Negative. Negative for hearing loss. Eyes: Negative. Negative for pain and visual disturbance. Respiratory: Negative. Negative for cough, shortness of breath and wheezing. Cardiovascular: Negative. Negative for chest pain, palpitations and leg swelling. Gastrointestinal: Positive for abdominal distention, constipation, nausea and vomiting. GERD; flatulence Endocrine: Negative for polydipsia (at times feels really thirsty), polyphagia and polyuria. Hypothyroidism Genitourinary: Negative. Negative for menstrual problem (LMP 01/11/2021). Musculoskeletal: Negative. Skin: Negative. Allergic/Immunologic: Negative. Neurological: Negative. Negative for seizures, syncope and headaches. Hematological: Negative. Psychiatric/Behavioral: Positive for dysphoric mood. Negative for self-injury and suicidal ideas. The patient is nervous/anxious. Bipolar anxiety; follows counselor All other systems reviewed and are negative. Objective Physical Exam Vitals signs reviewed. Constitutional: General: She is not in acute distress. Appearance: She is well-developed. She is not ill-appearing. HENT: Right Ear: External ear normal. Left Ear: External ear normal. Eyes: General: Right eye: No discharge. Left eye: No discharge. Conjunctiva/sclera: Conjunctivae normal. Pupils: Pupils are equal, round, and reactive to light. Neck: Musculoskeletal: Normal range of motion. Thyroid: No thyromegaly or thyroid tenderness. Cardiovascular: Rate and Rhythm: Normal rate and regular rhythm. Heart sounds: Normal heart sounds. No murmur. No friction rub. No gallop. Pulmonary: Effort: Pulmonary effort is normal. No respiratory distress. Breath sounds: Normal breath sounds. No wheezing. Abdominal: General: Bowel sounds are normal. Palpations: Abdomen is soft. There is no mass. Tenderness: There is no abdominal tenderness. Musculoskeletal: Normal range of motion. General: No tenderness. Lymphadenopathy: Cervical: No cervical adenopathy. Skin: General: Skin is warm and dry. Findings: No rash. Neurological: Mental Status: She is alert and oriented to person, place, and time. Deep Tendon Reflexes: Reflexes are normal and symmetric. Psychiatric: Mood and Affect: Mood normal. Behavior: Behavior normal. Thought Content: Thought content normal. Judgment: Judgment normal. Assessment/Plan: Problem List Items Addressed This Visit Digestive Nausea and vomiting - Primary Discussed potential causes, including GERD, slow transit of food, and constipation. Will provide zofran at this time for symptomatic management. Will also treat GERD and constipation and continue to monitor for improvement. If no improvement, may need GI referral. Relevant Medications ondansetron (ZOFRAN-ODT) 4 MG disintegrating tablet Gastroesophageal reflux disease Discussed reflux symptoms, along with management/prevention techniques. Start omeprazole as ordered. Also start pepcid PRN as ordered. Avoid carbonated beverages, caffeine, spicy foods; sit upright > 30 mins after eating/drinking. Call office if worsening or no improvement in symptoms. Relevant Medications omeprazole (PRILOSEC) 40 MG capsule famotidine (PEPCID) 20 MG tablet Endocrine Hypothyroidism Overdue for labs; last check was 2 years ago and TSH was 10. Will adjust medication when labs are resulted. Lengthy discussion on how this can cause a lot of side effects if not well controlled. Relevant Medications levothyroxine (SYNTHROID, LEVOTHROID) 200 MCG tablet Other Relevant Orders TSH with Reflex Free T4 Other Bloating Start simethicone as ordered. Discussed to monitor food intake and keep a log to see if certain foods make symptoms worse. Relevant Medications simethicone (MYLICON,GAS-X) 180 mg capsule Constipation Start miralax as ordered. Increase water intake. Increase activity. Eat healthy diet with fiber. Relevant Medications polyethylene glycol (MIRALAX) 17 gram powder Bipolar disorder (HCC) REcommend establishing with psych for evaluation and medication recommendations given past history of being diagnosed with bipolar disorder. Information provided for [facility] and [employer]. Other Visit Diagnoses Encounter for lipid screening for cardiovascular disease Relevant Orders Lipid Panel Encounter for screening for diabetes mellitus Relevant Orders Comprehensive Metabolic Panel Screening for deficiency anemia Relevant Orders CBC and Differential For all new medications prescribed today, patient was educated about indications for the medication, how to take the medication and potential side effects of the medications. Pt to call office with any problems with the new medication. documented in this encounter Health Concerns Infection Onset Date Last Indicated Resolved Time COVID-19 Rule-Out 06/23/2022 06/23/2022 Infection Onset Date Last Indicated Resolved Time COVID-19 Rule-Out 06/23/2022 06/23/2022 06/24/2022 5:01 AM EDT COVID-19 Confirmed 06/23/2022 06/23/2022 Infection Onset Date Last Indicated Resolved Time COVID-19 Rule-Out 11/15/2022 11/15/2022 11/16/2022 3:44 AM EST Reason for Referral Specialty Diagnoses / Procedures Referred By Michael t Referred To Contact CT IMAGING Diagnoses Abnormality of lung on CXR Procedures CT CHEST W IVCON DIAGNOSTIC COMPUTED TOMOGRAPHY THORAX W/CONTRAST Nayely Newman MD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 Time With?: SO/Spouse, Family, No One (boyfriend) Do You Spend A Significant Amount Of Time Alone?: Yes (at times) COPING PATTERNS: Coping Patterns Coping Patterns to Manage Stress : Talk to someone, Self harm/Suicidal Ideation/Homicidal Ideation, Isolation, Verbal anger (lash out, cry, denies drug/alc use) DAILY FUNCTIONING: Daily Functioning Limitations That Affect Daily Functioning: Lack of social contacts/support, Lack of confidence/self esteem, Lack of interest/energy/motivation, Mood instability, Poor coping skills, Transportation Personal Strengths: i dont know TREATMENT INTERVENTIONS: Treatment Interventions Treatment Interventions: Coping outlets, Self esteem, Healthy choices, Symptom management, Support groups, Prevent relapse, Daily function Pt will be encouraged to attend and interact in scheduled groups as appropriate and as able. Electronically signed by:Sky Bangura in this encounter Associated Problem(s): Constipation Start miralax as ordered. Increase water intake. Increase activity. Eat healthy diet with fiber. Associated Problem(s): Bloating Start simethicone as ordered. Discussed to monitor food intake and keep a log to see if certain foods make symptoms worse. Associated Problem(s): Nausea and vomiting Discussed potential causes, including GERD, slow transit of food, and constipation. Will provide zofran at this time for symptomatic management. Will also treat GERD and constipation and continue to monitor for improvement. If no improvement, may need GI referral. Associated Problem(s): Gastroesophageal reflux disease Discussed reflux symptoms, along with management/prevention techniques. Start omeprazole as ordered. Also start pepcid PRN as ordered. Avoid carbonated beverages, caffeine, spicy foods; sit upright > 30 mins after eating/drinking. Call office if worsening or no improvement in symptoms. Associated Problem(s): Bipolar disorder (HCC) REcommend establishing with psych for evaluation and medication recommendations given past history of being diagnosed with bipolar disorder. Information provided for [facility] and [employer]. Associated Problem(s): Hypothyroidism Overdue for labs; last check was 2 years ago and TSH was 10. Will adjust medication when labs are resulted. Lengthy discussion on how this can cause a lot of side effects if not well controlled. documented in this encounter Reno Walters PA-C - 06/30/2018 8:46 AM Evert Mg MD - 06/30/2018 8:12 AM EDT H&P Notes (unrecognized sect ion and content) Formatting of this note may be different from the original. [facility] History and Physical Note 06/30/18 Uriah Kaur 1995 [id number] Assessment/Plan: Uriah Kaur is a 23 y.o. female with a history of Anxiety, Depression, Hypothyroidism, Tobacco Abuse who presented to to [facility] via EMS on 06/27/18 after being found unresponsive Due to intentional ingestion of Benadryl. Patient was medically cleared and transferred to [facility] inpatient psych for aggressive psychiatric care. 1. Suicide Attempt: Likely secondary to decompensation of underlying anxiety and depression. Patient reported that she was feeling overwhelmed and tried to harm herself while she was drinking. History of previous suicide attempts. Continued suicide precautions and aggressive inpatient psychiatric treatment and management. 2. Depression/Anixety: per history. Continued aggressive inpatient psychiatric treatment and management. 3. Intentional Drug Overdose: Patient found unresponsive after intentional ingestion of handful of white pills. and 5 Benadryl. Acetaminophen level on admission 30 and then resolved. 4. Alcohol Intoxication: BAL 250 on admission. Endorses occasional use. Recommended cessation. 5. Hypokalemia: K 3.4 on admission. Resolved on 06/30/18 6. Hyperglycemia: Random Blood glucose 125. Likely reactive. HgbA1c pending. 7. Leukocytosis: WBC 12.23. Likely reactive. No signs or symptoms of infection. Monitor. 8. GERD: Continued home Zantac. 9. Gallbladder Polyp: US RUQ 06/22/18 showed small polyp w/o wall thickening or biliary dilation. Continued Zantac, can consider addition of GI cocktail if symptoms worsen. 10. Hypothyroidism: per history. Continued Synthroid. 11. Tobacco Abuse: 0.5PPD. NRT. Recommended Cessation 12. Obesity: per BMI. Recommended lifestyle medications. 13. DVT Prophylaxis: witnessed ambulation on admit Current living situation: home Expected disposition: home Estimated discharge date: TBD, depending on inpatient psychiatric care Chief Complaint: Intentional Drug Overdose/Suicidal Ideation History of Present Illness: Today I personally did a review of prior medical records and have summarized my findings in my assessment and plan as noted. Today I also reviewed recent labs, diagnostics, vitals including pulse ox, and domestic travel consultant/other provider recommendations. Uriah Kaur is a 23 y.o. female with a history of Anxiety, Depression, Hypothyroidism, Tobacco Abuse who presented to to [facility] via EMS on 06/27/18 after being found unresponsive Due to intentional ingestion of Benadryl. Patient was medically cleared and transferred to [facility] inpatient psych for aggressive psychiatric care. [place] entering room. Patient was lying in her bed. Patient woke to verbal stimuli Patient was found unresponsive by significant other and EMS was called. Patient ingested 5 benadryl and a hand full of white pills. Patient presented at [facility] was medically cleared any transferred to [facility]. Patient has a history of previous suicide attempt. Patient reported that she was drinking and was beginning to feel overwhelmed. Patient reported that she has been having episode of depression, irritability, and hopelessness. Patient also presented with RUQ abdominal pain which she is in the process of see a general surgeon for a consult due to a small gallbladder polyp and having four months of GERD. Patient denies any chest pain, SOB, nausea, vomiting, fever, chills, dysuria, hematuria, hematochezia, melena, motor or sensory deficit. ROS: 10 systems were reviewed and negative, except as noted above. Past Medical, Surgical, Social, Family History: Past Medical History: Diagnosis Date Anxiety Depression Disease of thyroid gland Past Surgical History: Procedure Laterality Date TONSILLECTOMY Social History Social History Marital status: Single Spouse name: N/A Number of children: N/A Years of education: N/A Occupational History Not on file. Social History Main Topics Smoking status: Current Every Day Smoker Packs/day: 0.50 Years: 9.00 Smokeless tobacco: Never Used Alcohol use Yes Comment: occasional Drug use: No Sexual activity: Yes Partners: Male Other Topics Concern Not on file Social History Narrative No narrative on file Family History Problem Relation Age of Onset Depression Father Alcohol abuse Father Depression Sister Depression Brother Home Medications: Uriah Kaur Home Medication Instructions Prior to Surgery BETSY:[id number] Printed on:06/30/18 1113 Medication Information Take last dose on Take the morning of surgery Comment(s) levothyroxine 150 mcg cap Take 1 tablet by mouth daily. Physical Exam: BP 102/64 (BP Location: Left arm, Patient Position: Lying) Pulse 66 Temp 98 ?F (36.7 ?C) (Oral) Resp 12 Ht 5' 3 Wt 85.1 kg (187 lb 9.8 oz) LMP 06/24/2018 (Approximate) SpO2 95% ? No BMI 33.23 kg/m General: NAD, alert Eyes: gaze conjugate, tracks ENT: MMM, EOMI, PERR Cardiovascular: Regular rate and rhythm Respiratory: Clear to auscultation, no wheezes or accessory muscle use Gastrointestinal: Soft, minimal RUQ tenderness, BS+ Mskt/extremities: Major joints without edema Skin: Warm, dry Neuro: Alert, oriented, cranial nerves grossly intact, witness ambulation Psych: Calm, cooperative Labs, Imaging, and Studies reviewed: Lab Results Component Value Date GLUCOSE 83 06/30/2018 CALCIUM 9.5 06/30/2018 NA 141 06/30/2018 K 4.3 06/30/2018 CL 106 06/30/2018 BUN 10 06/30/2018 CREATININE 0.77 06/30/2018 Lab Results Component Value Date WBC 7.80 06/30/2018 HGB 14.0 06/30/2018 HCT 42.2 06/30/2018 MCV 82.9 06/30/2018 PLT 264 06/30/2018 Lab Results Component Value Date ALT 17 06/27/2018 AST 20 06/27/2018 ALKPHOS 83 06/27/2018 BILITOT 0.2 06/27/2018 No results found for: INR Associated attestation - Corinna Delvalle, DO - 06/30/2018 11:50 AM EDT Pt seen and examined by ELMA Tovar. Formatting of this note may be different from the original. Psychiatry History and Physical Patient Name: Uriah Kaur MR #: [id number] : 1995 Admit Date: [id number] Primary Care Provider: Physician No Assessment & Plan Uriah Kaur is a 23 y.o. female. On a history of favorable response to Prozac 40 mg daily, the patient had not continued this medication since moving from [place] to this area. After the patient became intoxicated, she had an impulsive ingestion of [id number] medicine after arguing with her boyfriend. The patient reported very limited use of alcohol. She is confident that if she had not been drinking, the events that culminated in her hospitalization would not have transpired. Plan. Given the history of favorable response to Prozac, will restart the same. The patient is interested in working towards discharge within 2 days to allow her to attend the previously scheduled appointment regarding possible surgery on her gallbladder. I called the multimedia assistant nurse medical case manager Tyler at [address] indicating that this patient has been hospitalized and should be excused until her plan to return to work on July 03, 2018. He appreciated the phone call, given his covering for Janell, unit nurse medical case manager who is presently on leave. Diagnosis & Plan/Recommendations [place] I: Major depression recurrent, severe, nonpsychotic. Nicotine dependence. [place] II: Deferred [place] III: Status post overdose. Polyp on gallbladder. Hypothyroidism. [place] IV: Other psychosocial and environmental problems [place] V: 21-30: Behavior considerably influenced by delusions or hallucinations OR serious impairment in communication or judgment OR inability to function in almost all areas Comorbid issues impacting my care plan include nicotine dependence and hypothyroidism.. Chief Complaint: s/p overdose History of Present Illness: Uriah Kaur is a 23 y.o. female. Upon evaluation, the patient stated the following. I was doing okay. I went out on Friday (June 26, 2018) with a colleague. I got drunk. I had about 6 mixed drinks from 9 PM until 2 AM. Later, I argued with my boyfriend. I do not really remember. I told him that I took some pills. It was [id number] Benadryl. I do not know how many. I thought I may harm myself. I did not want to . I waited in the car. The ambulance came and brought me here. Additional charting indicates the following. Past psych history As a teenager, the patient was hospitalized status post overdose. After a course of one antidepressant, the patient reported favorable course on Prozac titrated to 40 mg daily. The patient to continue this dose for 1 year until she moved in October 2017 from [place] to this area. Prozac help with mood swings. I was in a peppy mood. The patient reported no adverse concerns on Prozac. Psychiatric review of systems The patient reported some occasional difficulty falling asleep. She denied any features consistent with nadege. Regarding nightmares, not often. Occasionally, the patient can have a startle response. She denied avoiding any situations that remind her of abusive or violent situations in the past. The patient did acknowledge having a rough childhood. Energy is decent. Concentration is not sure. The patient enjoys spending time outside and painting. If given a chance to either activity now, she would fully enjoy the same. Substance use Usually, I do not drink much at all. Friday was the third time that I drank this year. Before that, when I did drink, it was not enough to even get drunk. The patient smokes half a pack of cigarettes per day. She denied any other substance use. Past medical history The patient has hypothyroidism and sees an claims technician about twice a year. She has pending follow-up in 3 months for this condition. The patient was also diagnosed with a polyp on her gallbladder. In 2 days, the patient has an appointment regarding possible surgery to remove this. Also, the patient has a pending appointment in DR[facility]BUSE PRO[facility] COORD[facility] to remove an implant that she uses for control. The patient reported having menstrual periods and a possible cyst while on this implant. The patient is aware of using effective contraception, given that she takes her psychotropic medications. Family history significant for depression, bipolar, and attention deficit disorder. Father with EtOH. Social History Marital status: Single Spouse name: Boyfriend of three years is Maritza. Number of children: N/A Years of education: N/A Occupational History Works at [employer] Social History Main Topics Smoking status: Current Every Day Smoker Packs/day: 0.50 Years: 9.00 Smokeless tobacco: Never Used Drug use: No Sexual activity: Yes Partners: Male Patient does have a history of smoking >4 cigarettes daily, smoking cessation medication ordered. Medical History: I have reviewed the patient's other history as below: Past Medical History: Diagnosis Date Anxiety Depression Disease of thyroid gland Past Surgical History: Procedure Laterality Date TONSILLECTOMY Allergy Information: I have reviewed the patient's allergies as below: Patient has no known allergies. Home Medications: Outpatient Prescriptions as of 06/30/2018 Medication Sig levothyroxine 150 mcg cap Take 1 tablet by mouth daily. Review of Systems: Constitutional: Denies fever, chills, diaphoresis, malaise Eyes: Denies blurred vision, double vision ENT: Denies nasal congestion, sore throat Neurological: Denies headache, photophobia, weakness, numbness CVS: Denies chest pain or palpitations Respiratory: Denies dyspnea or cough Musculoskeletal: Denies joint pain or muscle aches GI: Denies nausea, vomiting, constipation, or diarrhea : Denies urinary urgency, frequency, or burning Integumentary: Denies itching or rash Endocrine: Denies heat/cold intolerance or weight loss/weight gain Physical Examination: Vital Signs: BP 102/64 (BP Location: Left arm, Patient Position: Lying) Pulse 66 Temp 98 ?F (36.7 ?C) (Oral) Resp 12 Ht 5' 3 Wt 85.1 kg (187 lb 9.8 oz) LMP 06/24/2018 (Approximate) SpO2 95% ? No BMI 33.23 kg/m Mental Status Evaluation: Grooming & Hygiene: Fair attention to personal appearance General Behavior: pleasant & cooperative Psychomotor Activity: no psychomotor abnormalities Speech: volume NL Flow to Thought: logical & goal directed Thought Associations: Intact Content of Thought: Pt has no suicidal or homicidal ideation. Mood: good Affect: Full range Insight: growing Judgment: growing Orientation: oriented to circumstances Memory: Recent: intact. Remote intact. Attention: intact Concentration: intact Language: Fluent Fund of Knowledge: intact Laboratory and Additional Data Reviewed: Toxicology screen unremarkable. Lab Results Component Value Date GLUCOSE 125 (H) 06/27/2018 CALCIUM 9.0 06/27/2018 NA 140 06/27/2018 K 3.4 (L) 06/27/2018 CL 105 06/27/2018 BUN 9 06/27/2018 CREATININE 0.75 06/27/2018 TSH 1.05. EKG performed on June 28, 2018 indicates QTC of 433. Treatment options and alternatives reviewed with patient. Risks, benefits, side effects of all psychiatric medications discussed with patient and informed consent obtained. All questions were answered. Evert Wilcox MD 06/30/2018 8:12 AM in this encounter INFORMATION SOURCE (unrecogn ized section and content) DATE CREATED AUTHOR AUTHOR'S ORGANIZ ATION 12/18/2020 [facility] DATE CREATED AUTHOR AUTHOR'S ORGANIZ ATION 01/29/2021 [facility] DATE CREATED AUTHOR AUTHOR'S ORGANIZ ATION 07/29/2021 [facility] DATE CREATED AUTHOR AUTHOR'S ORGANIZ ATION 11/16/2021 [facility] DATE CREATED AUTHOR AUTHOR'S ORGANIZ ATION 03/09/2022 [facility] DATE CREATED AUTHOR AUTHOR'S ORGANIZ ATION 03/09/2022 [facility] DATE CREATED AUTHOR AUTHOR'S ORGANIZ ATION 08/06/2022 [facility] DATE CREATED AUTHOR AUTHOR'S ORGANIZ ATION 10/16/2022 [facility] DATE CREATED AUTHOR AUTHOR'S ORGANIZ ATION 11/03/2023 [facility] DATE CREATED AUTHOR AUTHOR'S ORGANIZ ATION [facility]/2023 [facility] Reason for Visit (unrecogniz ed section and content) Reason Comments Fever chills, x1 day aguirre pa in rated 5 Specialty Diagnoses / Procedures Referred By Michael t Referred To Contact Internal Medicine / [facility] Diagnoses fever, muscle aches, cold chills x1 day Procedures NEW SAME DAY [facility] [address] [place] [address] Referral ID Status Reason Start Date Expiration Date Visits Requested Visits Authorized [id number] Authorized Patient Cleared - Qualified 100% FAS 06/23/2022 09/21/2022 99 99 Reason Comments Results Reason Comments Appointment Called to schedule a n appointment Reason Comments Cough Pt reported fever, H a, SOB with coughingx 1 day. Reason Comments Results Influenza A Reason Comments New Patient Abnormal CXR Reason Comments Spirometry Specialty Diagnoses / Procedures [facility] Diagnoses SOB (shortness of breath) Procedures SPIROMETRY WITH DILATOR IF OBSTRUCTED BRNCDILAT RSPSE SPMTRY PRE&POST-BRNCDILAT ADMN Nayely Newman MD [address] [place] [address] [address] Referral ID Status Reason Start Date Expiration Date V isits Requested Visits Authorized [id number] Closed Auto-Generate d Referral 11/19/2022 12/19/2023 1 1 Specialty Diagnoses / Procedures [facility] Diagnoses SOB (shortness of breath) Procedures NITRIC OXIDE, EXHALED NITRIC OXIDE GAS DETERMINATION Nayely Newman MD [address] [place] [address] [address] Referral ID Status Reason Start Date Expiration Date V isits Requested Visits Authorized [id number] Closed Auto-Generate d Referral 11/19/2022 12/19/2023 1 1 Reason Comments Sore Throat headache, chills, ea r pain and fever x 5 days Reason Comments Nausea & Vomiting Pt reported intermit tent N/V, currently taking ATB, bilateral ear pain, x2 days. Reason Comments Pain (foot) Pt reported (LT) angelica t injury, x6 days, sores located face, back x6 days. Reason Comments Radiology CT Specialty Diagnoses / Procedures [facility] To Contact [facility] IMAG[facility] Diagnoses Abnormality of lung on CXR Procedures CT CHEST W IVCON DIAGNOSTIC COMPUTED TOMOGRAPHY THORAX W/CONTRAST Nayely Newman MD [address] [place] [address] Ct Imaging [id number] Referral ID Status Reason Start Date Expiration Date V isits Requested Visits Authorized [id number] Closed Auto-Generate d Referral 11/19/2022 01/02/2023 1 1 <item><item><item> Privacy Markings (unrecogniz ed section and content) Section Author: Sheela Godwin PROHIBITION ON REDISCLOSURE OF CONFIDENTIAL INFORMATION This notice accompanies a disclosure of information concerning a client made to you with the consent of such client. Section Author: Sheela Godwin PROHIBITION ON REDISCLOSURE OF CONFIDENTIAL INFORMATION This notice accompanies a disclosure of information concerning a client made to you with the consent of such client. Section Author: Sheela Godwin PROHIBITION ON REDISCLOSURE OF CONFIDENTIAL INFORMATION This notice accompanies a disclosure of information concerning a client made to you with the consent of such client. Source Comments (unrecognize d section and content) In the event this informatio n is protected by the Federal Confidentiality of Alcohol and Drug Abuse Patient Records regulations: The Federal rules restrict any use of the information to criminally investigate or prosecute any alcohol or drug abuse patient.[facility] the event this information is protected by the Federal Confidentiality of Alcohol and Drug Abuse Patient Records regulations: The Federal rules restrict any use of the information to criminally investigate or prosecute any alcohol or drug abuse patient.[facility] the event this information is protected by the Federal Confidentiality of Alcohol and Drug Abuse Patient Records regulations: The Federal rules restrict any use of the information to criminally investigate or prosecute any alcohol or drug abuse patient.[facility] the event this information is protected by the Federal Confidentiality of Alcohol and Drug Abuse Patient Records regulations: The Federal rules restrict any use of the information to criminally investigate or prosecute any alcohol or drug abuse patient.[facility] the event this information is protected by the Federal Confidentiality of Alcohol and Drug Abuse Patient Records regulations: The Federal rules restrict any use of the information to criminally investigate or prosecute any alcohol or drug abuse patient.[facility] the event this information is protected by the Federal Confidentiality of Alcohol and Drug Abuse Patient Records regulations: The Federal rules restrict any use of the information to criminally investigate or prosecute any alcohol or drug abuse patient.[facility] the event this information is protected by the Federal Confidentiality of Alcohol and Drug Abuse Patient Records regulations: The Federal rules restrict any use of the information to criminally investigate or prosecute any alcohol or drug abuse patient.[facility] Dublin[facility] the event this information is protected by the Federal Confidentiality of Alcohol and Drug Abuse Patient Records regulations: The Federal rules restrict any use of the information to criminally investigate or prosecute any alcohol or drug abuse patient.[facility] Dublin[facility] the event this information is protected by the Federal Confidentiality of Alcohol and Drug Abuse Patient Records regulations: The Federal rules restrict any use of the information to criminally investigate or prosecute any alcohol or drug abuse patient.[facility] Dublin[facility] the event this information is protected by the Federal Confidentiality of Alcohol and Drug Abuse Patient Records regulations: The Federal rules restrict any use of the information to criminally investigate or prosecute any alcohol or drug abuse patient.[facility] Dublin[facility] the event this information is protected by the Federal Confidentiality of Alcohol and Drug Abuse Patient Records regulations: The Federal rules restrict any use of the information to criminally investigate or prosecute any alcohol or drug abuse patient.[facility] Dublin[facility] the event this information is protected by the Federal Confidentiality of Alcohol and Drug Abuse Patient Records regulations: The Federal rules restrict any use of the information to criminally investigate or prosecute any alcohol or drug abuse patient.[facility] Care Teams (unrecognized sec tion and content) Torch Shearer Relationship Specialty Start Date End Date Tonia Waddell CNP [address] [place] [address] PCP - General Family Medicine 03/28/23 FOR RECORDS PERTAINING TO PATIENTS WHO ARE OR HAVE BEEN ENROLLED IN A CHEMICAL DEPENDENCY/SUBSTANCEABUSE PROGRAM, SOME INFORMATION MAY BE OMITTED. This clinical summary was aggregated from multiple sources. Caution should be exercised in using it in the provision of clinical care. This summary normalizes information from multiple sources, and as a consequence, information in this document may materially change the coding, format and clinical context of patient data. In addition, data may be omitted in some cases. CLINICAL DECISIONS SHOULD BE BASED ON THE PRIMARY CLINICAL RECORDS. [facility] [employer] [facility]. provides no warranty or guarantee of the accuracy or completeness of information in this document.
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
== END 2023-12-05 19:53 | disposition home or self-care (01) ==
PROVIDERS: Emergency Provider Emergency Medicine; PCP Nurse Practitioner Family; Visit Provider Emergency Medicine
DX: S16.1XXA Strain of muscle, fascia and tendon at neck level, initial encounter (principal); F17.210 Nicotine dependence, cigarettes, uncomplicated; V89.2XXA Person injured in unspecified motor-vehicle accident, traffic, initial encounter
CPT/HCPCS: 71046; 72125; 99282

== ENCOUNTER 2024-03-21 17:36 | Emergency (ER) | payer MEDICAID, SELFPAY ==
[2024-03-21 17:37] VITALS: BP 124/98; PULSE 96; RESP 15; TEMP 36.4; O2SAT 100; BMI 31.1
--- NOTE | 2024-03-21 18:05 | ED.VIS.LOWEX ---
HPI <ELMA Baez - Last Filed: 03/21/24 18:52> History of Present Illness Chief Complaint: Lower Extremity Injury Narrative Narrative: Patient presenting today due to concerns for swelling to the medial aspect of her left foot that she first noticed yesterday. She noticed 2 small red dumont consistent with bite dumont and thinks she could have gotten bit by a bug. She was outside yesterday and did spend several minutes barefoot on her porch. She reports that she is about 8 weeks . She denies any fevers or chills. 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 PFSH <ELMA Baez - Last Filed: 03/21/24 18:52> [facility] Medical History Hypothyroid Home Medications alprazolam 0.5 mg tablet mg 03/28/23 [History Last Taken Unknown] amoxicillin 500 mg capsule mg 03/28/23 [History Last Taken Unknown] levothyroxine 150 mcg tablet 200 mcg PO DAILY 03/28/23 [History Last Taken Unknown] lisdexamfetamine 40 mg capsule (Vyvanse) mg 03/28/23 [History Last Taken Unknown] paroxetine HCl 10 mg tablet mg PO 03/28/23 [History Last Taken Unknown] doxycycline hyclate 100 mg tablet 100 mg PO BID 7 days #14 tabs 06/12/23 [Rx Last Taken Unknown] nystatin 100,000 unit/mL oral suspension 2 ml PO 4X/DAY #120 mL 06/12/23 [Rx Last Taken Unknown] cephalexin 500 mg capsule 500 mg PO Q6 5 days #20 CAPSULES 03/21/24 [Rx Last Taken Unknown] Allergy/AdvReac Type Severity Reaction Status Date / Time No Known Allergies Allergy Verified 03/21/24 17:39 Social History Smoking Status: Current every day smoker tobacco type: cigarettes ROS <ELMA Baez - Last Filed: 03/21/24 18:52> ROS ED Constitutional Constitutional ED: Denies chills or fever(s) Cardiovascular Cardiovascular: Denies chest pain Respiratory/Chest Respiratory/Chest: Denies cough or dyspnea Gastrointestinal Gastrointestinal: Denies abdominal pain, nausea or vomiting Musculoskeletal Musculoskeletal: Denies arthralgias or myalgias Integumentary Denies abscess or rash Neurologic Neurologic: Denies paresthesias or weakness EXAM <ELMA Baez - Last Filed: 03/21/24 18:52> Physical Exam Const Vital Signs: 03/21/24 17:37 03/21/24 18:25 Temperature 97.6 F L 97.6 F L Temperature Source Temporal Pulse Rate 96 96 Respiratory Rate 15 15 Blood Pressure 124/98 H 124/98 H Blood Pressure Mean 106 106 Pulse Ox 100 100 Oxygen Delivery Method Room Air Positive well nourished, well developed and no apparent distress General Appearance ED: well developed HEENT Reports normocephalic and head/scalp atraumatic Mouth ED: Yes moist mucous membranes normal Eyes PERRL and EOMs intact bilaterally Neck full ROM and supple Chest Wall inspection of chest normal Resp normal respiratory effort and clear to auscultation bilaterally Cardio regular rate and regular rhythm GI soft to palpation, non-tender, non-distended and no masses Back/Spine normal ROM and normal to inspection Back/Spine Narrative: Pain palpation to the left thoracic paraspinal muscles and medial aspect of the left scapula. Extremity normal to inspection and full ROM Extremity Narrative: Edema to the medial aspect of the left foot with 2 small erythemic dumont on the skin consistent with bug bites. No lymphangitic streaking, left DP pulse 2+, good capillary refill, sensation intact. Neuro oriented x3, CN's II-XII intact bilaterally, moves all extremities, no focal motor deficits and no sensory deficits noted Sensorium / Orientation: awake and alert Psych mental status grossly normal and thought process normal Skin no rashes or lesions noted and no wounds <Dr. Som Winslow MD - Last Filed: 03/21/24 19:05> Physical Exam Const Vital Signs: 03/21/24 17:37 03/21/24 18:25 Temperature 97.6 F L 97.6 F L Temperature Source Temporal Pulse Rate 96 96 Respiratory Rate 15 15 Blood Pressure 124/98 H 124/98 H Blood Pressure Mean 106 106 Pulse Ox 100 100 Oxygen Delivery Method Room Air MDM <ELMA Baez - Last Filed: 03/21/24 18:52> MDM MDM Narrative Medical decision making narrative: Patient presenting with swelling and pain to the medial aspect of her left foot that started yesterday. She was recently spending time outside barefoot, thinks she could have gotten bit by a bug. She is well-appearing and in no acute distress. Will give her Keflex, she can take Tylenol for pain. <Dr. Som Winslow MD - Last Filed: 03/21/24 19:05> [facility] Narrative Medical decision making narrative: Patient presenting with swelling and pain to the medial aspect of her left foot that started yesterday. She was recently spending time outside barefoot, thinks she could have gotten bit by a bug. She is well-appearing and in no acute distress. Will give her Keflex, she can take Tylenol for pain. I have personally performed a face to face assessment of the patient and have reviewed the JOSHUA Note. I performed a substantive portion of the visit including all aspects of the following. My dunn findings include: History is remarkable for redness swelling medial aspect of the left foot. The area is reddened. She complained of itching yesterday. She did not note 2 puncture wounds yesterday. She denies fever, chills night sweats. She is first trimester. She has no allergies to antibiotics. She denies shaking chills. Denies rheumatic fever, heart murmur mitral prolapse. Exam is area of fullness approximately size of a walnut. This was outlined with marker. There is also area of erythema which extends beyond this area of fullness that was marked as well. There is no lymphangitis. No popliteal lymphadenopathy. Heart is regular. Rate is normal. No murmur, gallop or rub. Medical Decision Making patient has an infection. Ultrasound was performed by me to determine if there is any fluid noted. There is edema and fullness compared to the uninvolved foot. There is no fluid collection based on my transcutaneous ultrasound. At this point plan is cephalexin. Follow-up with physician in 2 to 3 days. Other additions or changes: Ultrasound was performed to determine there is fluid which would necessitate I&D. There was none noted. Discharge Plan Triage Chief Complaint: Lower Extremity Injury ED Midlevel Provider: Zeny Hernandez ED Provider: Som Winslow Dx/Rx/DC Orders Clinical Impression: Foot swelling, First trimester , Bug bite Instructions: ED Insect Bite Prescriptions: New cephalexin 500 mg capsule 500 mg PO Q6 5 Days Qty: 20 0RF No Action amoxicillin 500 mg capsule paroxetine HCl 10 mg tablet PO alprazolam 0.5 mg tablet Vyvanse 40 mg capsule levothyroxine 150 MCG tablet 200 mcg PO DAILY doxycycline hyclate 100 mg tablet 100 mg PO BID 7 Days Qty: 14 0RF nystatin 100,000 unit/mL suspension 2 ml PO 4X/DAY Qty: 120 0RF Rx Instructions: Put 1 mL in each side of mouth 4 times a day. for 2 weeks (whatever bottle in stock) Primary Care Provider: Tonia Waddell Referrals: Tonia Waddell, RN MOBILE-C [Primary Care Provider] - 5-7 Days Activity Restrictions/Additional Instructions: Please follow-up with your PCP and return for any worsening of your symptoms. Disposition Disposition: Home, Self Care Discharge Date/Time: 03/21/24 18:26
[2024-03-21] MEDS: Cephalexin 250 MG Capsule 500 MG PO (18:24)
[2024-03-21] MEDS: Acetaminophen 325 MG Tablet 650 MG PO (18:24)
[2024-03-21 18:25] VITALS: BP 124/98; PULSE 96; RESP 15; TEMP 36.4; O2SAT 100
== END 2024-03-21 18:26 | disposition home or self-care (01) ==
LOC: ED 18:16
PROVIDERS: Emergency Provider Emergency Medicine; PCP Nurse Practitioner Family; Visit Provider Emergency Medicine
DX: O12.01 Gestational edema, first trimester (principal); O99.331 Smoking (tobacco) complicating pregnancy, first trimester; F17.210 Nicotine dependence, cigarettes, uncomplicated; Z3A.00 Weeks of gestation of pregnancy not specified
CPT/HCPCS: 99283